=== PATIENT | female | born 1950 | race Caucasian/White ===

== ENCOUNTER 2018-08-02 05:26 | Emergency (ER) | payer MEDICARE ==
[~2018-08-02] VITALS: Ht 160 cm; Wt 110.5 kg
[~2018-08-02 05:26] MED LIST: APIX5TAB3 PO; DILT180C95 PO; METF-950 PO
[2018-08-02] MEDS ORDERED: diltiazem CD 180mg cap (once-daily) PO ONE (06:30)
[2018-08-02] MEDS ORDERED: diltiazem CD 180mg cap (once-daily) PO SCH (06:30)
[2018-08-02 06:36] VITALS: BP 100/51
== END 2018-08-02 06:47 | disposition home or self-care (01) ==
LOC: ER 05:30
DX: I48.0 Paroxysmal atrial fibrillation (principal); E78.00 Pure hypercholesterolemia, unspecified; I10 Essential (primary) hypertension; E11.9 Type 2 diabetes mellitus without complications; Z90.49 Acquired absence of other specified parts of digestive tract; Z88.5 Allergy status to narcotic agent; Z79.899 Other long term (current) drug therapy
CPT/HCPCS: 71046; 82948; 93005; 99283; 99284

== ENCOUNTER 2022-05-01 11:06 | Day surgery (SDC) | payer OTHER ==
[2022-04-25 10:45] LABS: HEMOGLOBIN 7.8 g/dl (12.0-16.0); MEAN CORPUSCULAR VOLUME 67.7 FL (78-98)
[2022-04-25 10:47] LABS: BASOPHILS # (AUTO) 0.1 X10'3 (0-0.2); BASOPHILS % (AUTO) 1.3 % (0-1); EOSINOPHILS # (AUTO) 0.2 X10'3 (0-0.9); EOSINOPHILS % (AUTO) 2.8 % (0-6); HEMATOCRIT 26.1 % (35.0-45.0); LYMPHOCYTES # (AUTO) 1.5 X10'3 (1.1-4.8); LYMPHOCYTES % (AUTO) 20.1 % (21-51); MEAN CORPUSCULAR HEMOGLOBIN 20.1 PG (27.0-31.0); MEAN CORPUSCULAR HGB CONC 29.8 g/dL (33.0-36.5); MEAN PLATELET VOLUME 8.7 FL (7.4-10.4); MONOCYTES # (AUTO) 0.7 X10'3 (0-0.9); MONOCYTES % (AUTO) 8.8 % (2-12); PLATELET COUNT 288 X10'3 (140-440); RED BLOOD COUNT 3.86 X10'6 (4.20-5.60); WHITE BLOOD COUNT 7.4 X10'3 (4.5-11.0)
[2022-04-25 10:49] LABS: APTT 25 SECONDS (22-32)
[2022-04-25 10:51] LABS: ALBUMIN 3.6 G/DL (3.4-5.0); BLOOD UREA NITROGEN 10 MG/DL (7-18); BUN/CREATININE RATIO 22.7 (6.6-38.0); CALCIUM 9.1 MG/DL (8.5-10.1); CREATININE 0.44 MG/DL (0.40-0.90); GLUCOSE 173 MG/DL (70-104); TOTAL CARBON DIOXIDE 26.9 MMOL/L (24-32); eGFR > 90 ML/MIN
[2022-04-25 11:05] LABS: ANION GAP 9 (8-16); CHLORIDE 103 MMOL/L (99-107); SODIUM 139 MMOL/L (135-145)
[2022-04-25 11:36] LABS: MICROCYTOSIS 2+; PLATELET ESTIMATE NORMAL
[2022-04-25 11:37] LABS: ANISOCYTOSIS 1+; ELLIPTOCYTES 1+; HYPOCHROMASIA 2+; POLYCHROMASIA FEW
[2022-04-25 11:38] LABS: BURR CELLS FEW; SCHISTOCYTES FEW
[2022-05-01] VITALS (12 sets, daily range): BP systolic 108–155; BP diastolic 46–94
[~2022-05-01] VITALS: Ht 160 cm; Wt 102.6 kg
[~2022-05-01 11:06] MED LIST changes: +DILT-36 PO; -DILT180C95 PO; +METF-1203 PO; -METF-950 PO
[2022-05-01] MEDS ORDERED: MIDAZolam 1mg/ml 10ml vial IV ONE (11:30)
[2022-05-01] MEDS ORDERED: normal saline 1000ml 1,000 ML IV SCH (11:30)
[2022-05-01] MEDS ORDERED: fentaNYL/PF 50MCG/1 ML 2ML syringe IV ONE (11:30)
[2022-05-01] MEDS ORDERED: METF-438 PO (12:01)
[2022-05-01] MEDS ORDERED: SOTA80TA73 PO (12:01)
[2022-05-01] MEDS ORDERED: DILT180C87 PO (12:01)
[2022-05-01] MEDS ORDERED: LOSA100T57 PO (12:01)
[2022-05-01] MEDS ORDERED: DULA1.5P SQ (12:01)
[2022-05-01] MEDS ORDERED: LEVO150T8 PO (12:01)
[2022-05-01] MEDS ORDERED: ATOR20TA66 PO (12:01)
[2022-05-01] MEDS ORDERED: POTA-82 PO (12:01)
[2022-05-01] MEDS ORDERED: APIX5TAB3 PO (12:06)
[2022-05-01] MEDS ORDERED: FERR325T28 PO (12:06)
[2022-05-01] MEDS ORDERED: ATOR20TA PO (12:06)
== END 2022-05-01 14:15 | disposition home or self-care (01) ==
LOC: SSTAY O 11:06
PROVIDERS: ATTEND Internal Medicine Interventional Cardiology
DX: I48.0 Paroxysmal atrial fibrillation (principal); E11.9 Type 2 diabetes mellitus without complications; I11.0 Hypertensive heart disease with heart failure; I50.31 Acute diastolic (congestive) heart failure; I08.1 Rheumatic disorders of both mitral and tricuspid valves; E03.9 Hypothyroidism, unspecified; E66.9 Obesity, unspecified; Z68.41 Body mass index [BMI] 40.0-44.9, adult; Z79.899 Other long term (current) drug therapy; Z79.84 Long term (current) use of oral hypoglycemic drugs; Z88.2 Allergy status to sulfonamides; Z91.012 Allergy to eggs
CPT/HCPCS: 36415; 80048; 82948; 85025; 85610; 85730; 92960; 93005; J2250; J3010; J7030; 85008; A4620

== ENCOUNTER 2022-08-17 07:47 | Inpatient (IN) | payer MEDICARE, OTHER ==
[2022-08-17] VITALS (10 sets, daily range): BP systolic 128–160; BP diastolic 66–84
[~2022-08-17] VITALS: Ht 160 cm; Wt 103.7 kg
[~2022-08-17 07:47] MED LIST changes: +ATOR20TA PO; +ATOR20TA66 PO; -DILT-36 PO; +DILT180C76 PO; +DULA1.5P SQ; +FERR325T28 PO; +LEVO150T8 PO; +LOSA100T58 PO; -METF-1203 PO; +METF-438 PO; +POTA-366 PO; +SOTA80TA73 PO
[2022-08-17 08:26] LABS: BASOPHILS # (AUTO) 0.1 X10'3 (0-0.2); EOSINOPHILS % (AUTO) 0.5 % (0-6); LYMPHOCYTES % (AUTO) 12.4 % (21-51); MEAN CORPUSCULAR HEMOGLOBIN 16.9 PG (27.0-31.0); MEAN CORPUSCULAR HGB CONC 27.5 g/dL (33.0-36.5); MEAN CORPUSCULAR VOLUME 61.3 FL (78-98); MEAN PLATELET VOLUME 8.4 FL (7.4-10.4); MONOCYTES # (AUTO) 0.7 X10'3 (0-0.9); MONOCYTES % (AUTO) 7.8 % (2-12); NEUTROPHILS # (AUTO) 6.6 X10'3 (1.8-7.7); NEUTROPHILS % (AUTO) 78.3 % (42-75); PLATELET COUNT 250 X10'3 (140-440); RED BLOOD COUNT 3.56 X10'6 (4.20-5.60); RED CELL DISTRIBUTION WIDTH 21.8 % (11.5-14.5); WHITE BLOOD COUNT 8.5 X10'3 (4.5-11.0)
[2022-08-17] MEDS ORDERED: magnesium 4gm in 100ml NS 100 ML IV ONE (08:30)
[2022-08-17] MEDS ORDERED: digoxin 250mcg/ml 2ml ampule IV ONE (08:30)
[2022-08-17 08:42] LABS: ALANINE AMINOTRANSFERASE 16 U/L (12-78); ALBUMIN 3.5 G/DL (3.4-5.0); ALBUMIN/GLOBULIN RATIO 1.1 (1.1-1.5); ALKALINE PHOSPHATASE 94 IU/L (46-116); ANION GAP 12 (8-16); ASPARTATE AMINO TRANSFERASE 13 U/L (10-37); BILIRUBIN,TOTAL 0.4 MG/DL (0.1-1.0); BLOOD UREA NITROGEN 12 MG/DL (7-18); BUN/CREATININE RATIO 22.6 (10.0-20.0); CALCIUM 8.9 MG/DL (8.5-10.1); CHLORIDE 100 MMOL/L (99-107); CREATININE 0.53 MG/DL (0.40-0.90); GLUCOSE 186 MG/DL (70-104); HEMATOCRIT 21.8 % (35.0-45.0); POTASSIUM 4.1 MMOL/L (3.5-5.1); SODIUM 137 MMOL/L (135-145); TOTAL CARBON DIOXIDE 24.8 MMOL/L (24-32); TOTAL PROTEIN 6.6 G/DL (6.4-8.2); eGFR > 90 ML/MIN
--- NOTE | 2022-08-17 08:50 | NUR ---
RN ATTEMPTING TO GET 2ND IV AT THIS TIME D/T PT WILL NEED AMIODARONE AND BLOOD.
[2022-08-17 09:03] LABS: ANISOCYTOSIS 3+; ELLIPTOCYTES 1+; HYPOCHROMASIA 2+; MICROCYTOSIS 2+; PLATELET ESTIMATE NORMAL; POLYCHROMASIA FEW; TEAR DROP CELLS 2+
[2022-08-17] MEDS ORDERED: diltiazem 5mg/ml 5ml inj. IV ONE (09:05)
--- NOTE | 2022-08-17 09:09 | NUR ---
pt hgb 6.0/hct 21.8. rn notified DR INTERIANO.
--- NOTE | 2022-08-17 09:15 | NUR ---
RN UNABLE TO OBTAIN IV AFTER 2 STICKS. 2ND RN ATTEMPTING 2ND IV AT THIS TIME.
[2022-08-17] MEDS ORDERED: pantoprazole 40mg IV 80 MG in normal saline 100ml IV soln 100 ML IV ONE (09:30)
[2022-08-17 09:52] LABS: OCCULT BLOOD STOOL POSITIVE (Neg)
[2022-08-17] MEDS ORDERED: pantoprazole 40MG/NS 100ML BAG 100 ML IV ONE (10:00)
[2022-08-17] MEDS ORDERED: ondansetron/PF 4mg/2ml inj IV ONE (10:40)
[2022-08-17] MEDS ORDERED: propofol 1000mg/100ml bottle 100 ML IV SCH (10:40)
[2022-08-17] MEDS ORDERED: glucagon, human recombinant 1mg kit SUBCUT PRN (15:10)
[2022-08-17] MEDS ORDERED: magnesium hydroxide 30ml (MOM) UD suspension PO PRN (15:10)
[2022-08-17] MEDS ORDERED: morphine 2 MG/ML inj. syringe IV PRN ×2 (15:10)
[2022-08-17] MEDS ORDERED: dextrose 50%-water 50ml dispensing syringe IV PRN ×2 (15:10)
[2022-08-17] MEDS ORDERED: acetaminophen 325mg tablet PO PRN ×2 (15:10)
[2022-08-17] MEDS ORDERED: MESSAGE TO PHARMACY PO ONE (15:10)
[2022-08-17] MEDS ORDERED: ondansetron/PF 4mg/2ml inj IV PRN (15:10)
[2022-08-17] MEDS ORDERED: mag hydrox/Alum hydrox/simeth 30ml oral suspension PO PRN (15:10)
[2022-08-17] MEDS ORDERED: DEXTROSE 15 GM of carb/4 tabs (each vial/BOTTLE has 4 tablets) PO PRN ×2 (15:10)
[2022-08-17] MEDS ORDERED: insulin Lispro (HumaLOG) vial - multi-dose SQ SCH (15:10)
[2022-08-17 15:55] LABS: HEMOGLOBIN A1C 6.4 % (4.5-6.2)
[2022-08-17] MEDS ORDERED: DILT240C88 PO (17:10)
--- NOTE | 2022-08-17 17:31 | NUR ---
CORRECTION MAD TO TRANSFUSION SPREADSHEET - UNABLE TO UNDO 1645 VITALS DURING SECOND UNIT, MISTYPE IN RR.
--- NOTE | 2022-08-17 17:48 | NUR ---
Sent to Dr Alegre - [id number] Tara Garcia Currently NPO. Due to procedure delayed until tomorrow can we give her dinner and restart NPO at 0000? Khadijah ZIEGLER [phone]
--- NOTE | 2022-08-17 17:48 | NUR ---
Patient admitted to PCU.
--- NOTE | 2022-08-17 18:20 | NUR ---
MD gave verbal order to advance diet from NPO to full liquid until midnight. Orders updated and pt tolerated full liquid diet for dinner well.
[2022-08-17 19:23] LABS: HEMATOCRIT 27.2 % (35.0-45.0); HEMOGLOBIN 8.3 g/dl (12.0-16.0); MEAN CORPUSCULAR HEMOGLOBIN 20.6 PG (27.0-31.0); MEAN CORPUSCULAR HGB CONC 30.5 g/dL (33.0-36.5); MEAN CORPUSCULAR VOLUME 67.4 FL (78-98); MEAN PLATELET VOLUME 8.5 FL (7.4-10.4); PLATELET COUNT 189 X10'3 (140-440); RED BLOOD COUNT 4.04 X10'6 (4.20-5.60); WHITE BLOOD COUNT 7.5 X10'3 (4.5-11.0)
[2022-08-17] MEDS: docusate sod 100mg capsule PO SCH (19:31)
--- NOTE | 2022-08-17 20:30 | NUR ---
PET COUNSELOR documentation: I have reviewed and agree with all interventions, assessments performed and documented byBeckie Blankenship LVN.
[2022-08-17] MEDS: pantoprazole 40MG/NS 100ML BAG 100 ML IV SCH (20:31)
[2022-08-17] MEDS: insulin glargine (Lantus) pen - multi-dose SQ SCH (20:34)
[2022-08-18] VITALS (11 sets, daily range): BP systolic 109–158; BP diastolic 58–94
[2022-08-18] MEDS: docusate sod 100mg capsule PO SCH ×2 (06:14→20:06)
[2022-08-18 06:39] LABS: BASOPHILS # (AUTO) 0.1 X10'3 (0-0.2); BASOPHILS % (AUTO) 1.2 % (0-1); EOSINOPHILS # (AUTO) 0.2 X10'3 (0-0.9); EOSINOPHILS % (AUTO) 2.7 % (0-6); HEMATOCRIT 27.7 % (35.0-45.0); HEMOGLOBIN 8.3 g/dl (12.0-16.0); LYMPHOCYTES # (AUTO) 1.6 X10'3 (1.1-4.8); LYMPHOCYTES % (AUTO) 22.3 % (21-51); MEAN CORPUSCULAR HEMOGLOBIN 20.6 PG (27.0-31.0); MEAN CORPUSCULAR VOLUME 68.7 FL (78-98); MEAN PLATELET VOLUME 8.4 FL (7.4-10.4); MONOCYTES # (AUTO) 0.6 X10'3 (0-0.9); MONOCYTES % (AUTO) 8.8 % (2-12); NEUTROPHILS # (AUTO) 4.5 X10'3 (1.8-7.7); PLATELET COUNT 206 X10'3 (140-440); RED BLOOD COUNT 4.03 X10'6 (4.20-5.60); RED CELL DISTRIBUTION WIDTH 28.3 % (11.5-14.5)
[2022-08-18 07:01] LABS: ALBUMIN 3.2 G/DL (3.4-5.0); ANION GAP 9 (8-16); BLOOD UREA NITROGEN 8 MG/DL (7-18); BUN/CREATININE RATIO 15.1 (10.0-20.0); CALCIUM 8.6 MG/DL (8.5-10.1); CHLORIDE 104 MMOL/L (99-107); CREATININE 0.53 MG/DL (0.40-0.90); GLUCOSE 125 MG/DL (70-104); POTASSIUM 3.8 MMOL/L (3.5-5.1); SODIUM 139 MMOL/L (135-145); TOTAL CARBON DIOXIDE 26.2 MMOL/L (24-32); eGFR > 90 ML/MIN
[2022-08-18] MEDS: pantoprazole 40MG/NS 100ML BAG 100 ML IV SCH ×2 (08:29→20:47)
--- NOTE | 2022-08-18 08:44 | NUR ---
DM consult: Per EMR pt with T2DM, well controlled with A1c 6.4%. DM education not warranted at this time. Will continue to follow. Addendum: 08/18/22 at [address] Amended: Links added.
[2022-08-18] MEDS ORDERED: LIDOcaine Viscous 15ml cup ONE (11:19)
[2022-08-18] MEDS ORDERED: fentaNYL/PF 50MCG/1 ML 2ML syringe ONE (11:19)
[2022-08-18] MEDS ORDERED: MIDAZolam 1 MG/ML 5ML VIAL ONE (11:19)
[2022-08-18] MEDS ORDERED: PEG 3350/Na sulf,bicarb,Cl/KCl oral sol 4 liter bottle PO ONE (16:05)
[2022-08-18] MEDS: insulin glargine (Lantus) pen - multi-dose SQ SCH (20:32)
[2022-08-18] MEDS ORDERED: atorvastatin 20mg tablet PO SCH (21:00)
[2022-08-18] MEDS ORDERED: losartan 50mg tablet PO SCH (21:00)
[2022-08-19] VITALS (13 sets, daily range): BP systolic 102–140; BP diastolic 48–72
--- NOTE | 2022-08-19 03:47 | NUR ---
SOLAR SYSTEMS DESIGNER documentation: I have reviewed and agree with assessment performed and documented by BETI Dowd
[2022-08-19 06:14] LABS: ANION GAP 11 (8-16); BASOPHILS # (AUTO) 0.1 X10'3 (0-0.2); BASOPHILS % (AUTO) 1.1 % (0-1); BLOOD UREA NITROGEN 5 MG/DL (7-18); BUN/CREATININE RATIO 11.4 (10.0-20.0); CALCIUM 8.6 MG/DL (8.5-10.1); CHLORIDE 105 MMOL/L (99-107); CREATININE 0.44 MG/DL (0.40-0.90); EOSINOPHILS # (AUTO) 0.1 X10'3 (0-0.9); EOSINOPHILS % (AUTO) 2.5 % (0-6); GLUCOSE 129 MG/DL (70-104); HEMATOCRIT 26.2 % (35.0-45.0); HEMOGLOBIN 7.8 g/dl (12.0-16.0); LYMPHOCYTES # (AUTO) 0.8 X10'3 (1.1-4.8); LYMPHOCYTES % (AUTO) 15.7 % (21-51); MEAN CORPUSCULAR HEMOGLOBIN 20.3 PG (27.0-31.0); MEAN CORPUSCULAR HGB CONC 29.7 g/dL (33.0-36.5); MEAN CORPUSCULAR VOLUME 68.3 FL (78-98); MEAN PLATELET VOLUME 8.6 FL (7.4-10.4); MONOCYTES # (AUTO) 0.6 X10'3 (0-0.9); NEUTROPHILS # (AUTO) 3.8 X10'3 (1.8-7.7); NEUTROPHILS % (AUTO) 69.7 % (42-75); PLATELET COUNT 177 X10'3 (140-440); POTASSIUM 3.5 MMOL/L (3.5-5.1); RED BLOOD COUNT 3.83 X10'6 (4.20-5.60); RED CELL DISTRIBUTION WIDTH 29.2 % (11.5-14.5); SODIUM 143 MMOL/L (135-145); WHITE BLOOD COUNT 5.4 X10'3 (4.5-11.0); eGFR > 90 ML/MIN
--- NOTE | 2022-08-19 06:30 | NUR ---
Patient in room U 3023. I have received report from Beckie GHOSH and had the opportunity to ask questions and assume patient care. Addendum: 08/19/22 at 0633 by Chadd Castro RN Beckie brenner RN
--- NOTE | 2022-08-19 06:31 | NUR ---
Patient in room PCU 3023. I have received report from Beckie ZIEGLER and had the opportunity to ask questions and assume patient care.
[2022-08-19] MEDS ORDERED: levoTHYROXINE 75mcg tablet PO SCH (08:00)
[2022-08-19] MEDS ORDERED: diltiazem CD 120mg capsule (once-daily) PO SCH (08:00)
[2022-08-19] MEDS ORDERED: ferrous sulfate 325mg tablet PO SCH (08:00)
[2022-08-19] MEDS ORDERED: fentaNYL/PF 50MCG/1 ML 2ML syringe ONE (09:08)
[2022-08-19] MEDS ORDERED: MIDAZolam 1 MG/ML 5ML VIAL ONE (09:08)
--- NOTE | 2022-08-19 09:39 | NUR ---
PAGER ID: [phone] MESSAGE: LOREN GHOSH TELE [phone], FERMIN Chilel [phone]. PT. RETURNED TO FLOOR AFTER COLONOSCOPY. RESULTS ARE IN CHART. PT. CURRENTLY ON POST OPS. THANKS
[2022-08-19] MEDS: pantoprazole 40MG/NS 100ML BAG 100 ML IV SCH (09:52)
[2022-08-19] MEDS: docusate sod 100mg capsule PO SCH (09:53)
--- NOTE | 2022-08-19 13:44 | NUR ---
PAGER ID: [phone] MESSAGE: Alek Parnell re: [phone] Yas Garcia type and screen developed a new antibody that they have not isolated yet, new since the . Do you still want to transfuse the unit once they complete the screening. Thanks
--- NOTE | 2022-08-19 15:59 | NUR ---
pt. IV cannula whole and intact upon removal, pt. left with all belongings 2 purses and 1 plastic bag, accompanied by daughter in law in private vehicle, pt safely transferred into vehicle. education provided to pt. upon discharge. Addendum: 08/19/22 at 1620 by Chadd Castro RN education provided on follow up with wellness nurse and primary care provider, s/s of bleeding, type 2 diabetes management, and pt. declined to stay for blood transfusion, okayed by
[2022-08-19] MEDS ORDERED: pantoprazole 40mg Tablet.DR PO SCH (20:00)
== END 2022-08-19 15:35 | disposition home or self-care (01) | DRG 378 ==
LOC: ER 07:48 → ED HOLD 15:11 → PCU 3S 17:30
PROVIDERS: ADMIT Internal Medicine; ATTEND Internal Medicine
PROC: 30233N1 Transfusion of Nonautologous Red Blood Cells into Peripheral Vein, Percutaneous Approach (ICD-10-PCS; principal; 2022-08-17)
PROC: 0DB98ZX Excision of Duodenum, Via Natural or Artificial Opening Endoscopic, Diagnostic (ICD-10-PCS; 2022-08-17)
PROC: 0DB68ZX Excision of Stomach, Via Natural or Artificial Opening Endoscopic, Diagnostic (ICD-10-PCS; 2022-08-17)
PROC: 0DJD8ZZ Inspection of Lower Intestinal Tract, Via Natural or Artificial Opening Endoscopic (ICD-10-PCS; 2022-08-17)
DX: K92.2 Gastrointestinal hemorrhage, unspecified (principal); Z68.41 Body mass index [BMI] 40.0-44.9, adult; D64.9 Anemia, unspecified; K29.71 Gastritis, unspecified, with bleeding; E03.9 Hypothyroidism, unspecified; E11.9 Type 2 diabetes mellitus without complications; E78.00 Pure hypercholesterolemia, unspecified; E66.01 Morbid (severe) obesity due to excess calories; I10 Essential (primary) hypertension; I48.0 Paroxysmal atrial fibrillation; K21.9 Gastro-esophageal reflux disease without esophagitis; Z79.01 Long term (current) use of anticoagulants; Z79.84 Long term (current) use of oral hypoglycemic drugs; Z79.85 Long-term (current) use of injectable non-insulin antidiabetic drugs; Z79.899 Other long term (current) drug therapy; Z90.49 Acquired absence of other specified parts of digestive tract; Z82.49 Family history of ischemic heart disease and other diseases of the circulatory system; Z88.5 Allergy status to narcotic agent
CPT/HCPCS: 36415; 36430; 43239; 45378; 71045; 80048; 80053; 82272; 82948; 83036; 83880; 84484; 85008; 85025; 85027; 86870; 86885; 86900; 86901; 86902; 86905; 86920; 87081; 93005; 99152; 99285; A4620; C9113; G0378; J1160; J1815; J2250; J2405; J3010; J3475; J3490; J7030; J7040; P9016

== ENCOUNTER 2022-10-24 11:34 | Inpatient (IN) | payer MEDICARE ==
[~2022-10-24] VITALS: Ht 160 cm; Wt 104.5 kg
[2022-10-24] VITALS (10 sets, daily range): BP systolic 103–167; BP diastolic 70–87; PULSE 95–137; RESP 12–19; TEMP 98–98.9; O2SAT 96
[~2022-10-24 11:34] MED LIST changes: -ATOR20TA66 PO; -DILT180C76 PO; +DILT240C88 PO; -SOTA80TA73 PO
[2022-10-24 13:25] LABS: BASOPHILS # (AUTO) 0.1 X10'3 (0-0.2); EOSINOPHILS % (AUTO) 0.5 % (0-6); HEMATOCRIT 25.3 % (35.0-45.0); MONOCYTES # (AUTO) 0.5 X10'3 (0-0.9); NEUTROPHILS # (AUTO) 7.1 X10'3 (1.8-7.7)
[2022-10-24 13:29] LABS: BASOPHILS % (AUTO) 1.5 % (0-1); HEMOGLOBIN 7.2 g/dl (12.0-16.0); LYMPHOCYTES # (AUTO) 0.8 X10'3 (1.1-4.8); MEAN CORPUSCULAR HGB CONC 28.3 g/dL (33.0-36.5); MEAN CORPUSCULAR VOLUME 63.4 FL (78-98); MEAN PLATELET VOLUME 8.8 FL (7.4-10.4); MONOCYTES % (AUTO) 6.4 % (2-12); NEUTROPHILS % (AUTO) 82.6 % (42-75); PLATELET COUNT 205 X10'3 (140-440); RED CELL DISTRIBUTION WIDTH 21.6 % (11.5-14.5); WHITE BLOOD COUNT 8.6 X10'3 (4.5-11.0)
[2022-10-24 13:31] LABS: APTT 23 SECONDS (22-32); INR 1.1 INR; PROTHROMBIN TIME 11.5 SECONDS (9.0-12.0)
[2022-10-24 13:41] LABS: ALANINE AMINOTRANSFERASE 9 U/L (12-78); ALBUMIN 3.5 G/DL (3.4-5.0); ALBUMIN/GLOBULIN RATIO 1.1 (1.1-1.5); ALKALINE PHOSPHATASE 96 IU/L (46-116); ANION GAP 10 (8-16); ASPARTATE AMINO TRANSFERASE 16 U/L (10-37); BILIRUBIN,TOTAL 0.4 MG/DL (0.1-1.0); BLOOD UREA NITROGEN 12 MG/DL (7-18); CALCIUM 9.3 MG/DL (8.5-10.1); CHLORIDE 100 MMOL/L (99-107); CREATININE 0.48 MG/DL (0.40-0.90); GLUCOSE 210 MG/DL (70-104); POTASSIUM 4.5 MMOL/L (3.5-5.1); SODIUM 135 MMOL/L (135-145); TOTAL CARBON DIOXIDE 24.9 MMOL/L (24-32); TOTAL PROTEIN 6.6 G/DL (6.4-8.2); eCRCL 89 ML/MIN; eGFR > 90 ML/MIN
[2022-10-24] MEDS ORDERED: pantoprazole 40 MG vial IV ONE (14:35)
[2022-10-24 14:37] LABS: LARGE PLATELETS FEW; PLATELET ESTIMATE NORMAL
[2022-10-24 14:38] LABS: ANISOCYTOSIS 3+; MICROCYTOSIS 2+
[2022-10-24 14:39] LABS: ELLIPTOCYTES 1+
[2022-10-24 14:41] LABS: HYPOCHROMASIA 3+; POLYCHROMASIA FEW; TEAR DROP CELLS FEW
[2022-10-24] MEDS ORDERED: pantoprazole 40MG/NS 100ML BAG 100 ML IV ONE (14:45)
[2022-10-24 15:04] LABS: RED BLOOD COUNT 4.04 X10'6 (4.20-5.60); RETICULOCYTE % (AUTO) 5.3 % (0.5-1.5)
[2022-10-24 15:50] LABS: OCCULT BLOOD STOOL POSITIVE (Neg)
[2022-10-24] MEDS ORDERED: HYDROcodone/acetaminophen 5mg/325mg tablet PO PRN (17:40)
[2022-10-24] MEDS ORDERED: mag hydrox/Alum hydrox/simeth 30ml oral suspension PO PRN (17:40)
[2022-10-24] MEDS ORDERED: acetaminophen 325mg tablet PO PRN ×2 (17:40)
[2022-10-24] MEDS ORDERED: bisacodyl 10mg suppository rectal RC PRN (17:40)
[2022-10-24] MEDS ORDERED: HYDROcodone/acetaminophen 10/325mg tab PO PRN (17:40)
[2022-10-24] MEDS ORDERED: magnesium Cl slow-release 64mg tablet PO PRN (17:40)
[2022-10-24] MEDS ORDERED: HYDROmorphone/PF 0.2 MG/ML SYRINGE IV PRN (17:40)
[2022-10-24] MEDS ORDERED: magnesium 4gm in 100ml NS 100 ML IV PRN (17:40)
[2022-10-24] MEDS ORDERED: PEG 3350/Na sulf,bicarb,Cl/KCl oral sol 4 liter bottle PO ONE (17:40)
[2022-10-24] MEDS ORDERED: potassium Cl 20 mEq SR tablet PO PRN ×2 (17:40)
[2022-10-24] MEDS ORDERED: potassium Cl 40MEQ/1/2NS 520ml 520 ML IV PRN (17:40)
[2022-10-24] MEDS ORDERED: magnesium hydroxide 30ml (MOM) UD suspension PO PRN (17:40)
[2022-10-24] MEDS ORDERED: magnesium 2GM in 50ml NS 50 ML IV PRN (17:40)
[2022-10-24] MEDS ORDERED: ondansetron 4mg rapidly disintigrating tab PO PRN (17:40)
[2022-10-24] MEDS ORDERED: ondansetron/PF 4mg/2ml inj IV PRN (17:40)
[2022-10-24] MEDS ORDERED: HYDROmorphone inj. 0.5 MG/0.5 ML DISP.SYRIN IV PRN (17:40)
[2022-10-24] MEDS: K and/or MAG REPLACEMENT MC SCH (20:00)
[2022-10-24] MEDS: docusate sod 100mg capsule PO SCH (20:00)
[2022-10-24] MEDS ORDERED: temazepam 15mg capsule PO PRN (21:00)
[2022-10-24] MEDS ORDERED: losartan 50mg tablet PO SCH (21:00)
--- NOTE | 2022-10-24 21:00 | NUR ---
BLOOD STARTED VERIFIED WITH RN
[2022-10-24] MEDS: normal saline 1000ml 1,000 ML IV SCH (22:45)
--- NOTE | 2022-10-24 23:25 | NUR ---
PATIENT ADMITTED TO ROOM 3028B FROM ER FOR GI BLEED. PLACED COMFORTABLE IN BED. VITAL SIGNS TAKEN AND RECORDED.
[2022-10-25 02:00] VITALS: BP 156/82; PULSE 122; RESP 18; TEMP 98; O2SAT 98
[2022-10-25] MEDS: normal saline 1000ml 1,000 ML IV SCH ×2 (04:33→13:40)
[2022-10-25 06:00] VITALS: BP 140/68; PULSE 127; RESP 16; TEMP 97.9; O2SAT 100
--- NOTE | 2022-10-25 06:18 | NUR ---
Problems reprioritized. Patient report given, questions answered & plan of care reviewed with JUNG GHOSH.
[2022-10-25] MEDS ORDERED: levoTHYROXINE 75mcg tablet PO SCH (07:00)
[2022-10-25] MEDS: docusate sod 100mg capsule PO SCH (07:18)
[2022-10-25] MEDS ORDERED: pantoprazole 40mg Tablet.DR PO SCH (07:30)
[2022-10-25 07:32] LABS: BASOPHILS # (AUTO) 0.1 X10'3 (0-0.2); BASOPHILS % (AUTO) 1.1 % (0-1); EOSINOPHILS # (AUTO) 0.1 X10'3 (0-0.9); EOSINOPHILS % (AUTO) 1.8 % (0-6); HEMATOCRIT 31.1 % (35.0-45.0); HEMOGLOBIN 9.5 g/dl (12.0-16.0); LYMPHOCYTES # (AUTO) 1.2 X10'3 (1.1-4.8); LYMPHOCYTES % (AUTO) 16.8 % (21-51); MEAN CORPUSCULAR HEMOGLOBIN 20.9 PG (27.0-31.0); MEAN CORPUSCULAR HGB CONC 30.7 g/dL (33.0-36.5); MEAN PLATELET VOLUME 8.4 FL (7.4-10.4); MONOCYTES # (AUTO) 0.6 X10'3 (0-0.9); MONOCYTES % (AUTO) 8.4 % (2-12); NEUTROPHILS # (AUTO) 5.3 X10'3 (1.8-7.7); NEUTROPHILS % (AUTO) 71.9 % (42-75); PLATELET COUNT 210 X10'3 (140-440); RED BLOOD COUNT 4.57 X10'6 (4.20-5.60); RED CELL DISTRIBUTION WIDTH 26.3 % (11.5-14.5); WHITE BLOOD COUNT 7.4 X10'3 (4.5-11.0)
[2022-10-25 07:35] LABS: HEMOGLOBIN A1C 6.7 % (4.5-6.2)
[2022-10-25 07:53] LABS: ALANINE AMINOTRANSFERASE 20 U/L (12-78); ALBUMIN 3.6 G/DL (3.4-5.0); ALBUMIN/GLOBULIN RATIO 1.1 (1.1-1.5); ALKALINE PHOSPHATASE 94 IU/L (46-116); ANION GAP 7 (8-16); ASPARTATE AMINO TRANSFERASE 15 U/L (10-37); BILIRUBIN,TOTAL 1.1 MG/DL (0.1-1.0); BLOOD UREA NITROGEN 8 MG/DL (7-18); BUN/CREATININE RATIO 16.3 (10.0-20.0); CALCIUM 9.6 MG/DL (8.5-10.1); CHLORIDE 102 MMOL/L (99-107); CREATININE 0.49 MG/DL (0.40-0.90); GLUCOSE 217 MG/DL (70-104); MAGNESIUM 1.5 MG/DL (1.5-2.4); POTASSIUM 4.1 MMOL/L (3.5-5.1); SODIUM 137 MMOL/L (135-145); TOTAL CARBON DIOXIDE 28.1 MMOL/L (24-32); TOTAL PROTEIN 6.9 G/DL (6.4-8.2); eCRCL 87 ML/MIN; eGFR > 90 ML/MIN
[2022-10-25] MEDS ORDERED: diltiazem CD 120mg capsule (once-daily) PO SCH (08:00)
[2022-10-25] MEDS ORDERED: potassium Cl 20 mEq SR tablet PO SCH (08:00)
[2022-10-25] MEDS: K and/or MAG REPLACEMENT MC SCH (08:00)
[2022-10-25] MEDS ORDERED: MIDAZolam 1 MG/ML 5ML VIAL ONE (11:21)
[2022-10-25] MEDS ORDERED: fentaNYL/PF 50MCG/1 ML 2ML syringe ONE (11:21)
[2022-10-25] MEDS ORDERED: LIDOcaine Viscous 15ml cup ONE (11:26)
[2022-10-25 11:54] VITALS: BP 102/61; PULSE 103; RESP 14; O2SAT 100
[2022-10-25 12:52] VITALS: BP 132/62; PULSE 104; RESP 19
--- NOTE | 2022-10-25 14:36 | NUR ---
Nutrition consult re: "Diabetic" Pt presents with an A1c of 6.7% this admit per EMR. Diabetes nutrition education not warranted given advanced age and appropriate A1c. Will continue to monitor and make recommendations as appropriate. Addendum: 10/25/22 at [address] Amended: Links added.
[2022-10-25] MEDS ORDERED: PANT40TA54 PO (15:02)
--- NOTE | 2022-10-25 15:15 | NUR ---
Discharge instructions discussed with pt. all questions answered. Talked about new medication. pt states she understands all instructions. Family coming to pick pt up. Pt will leave unit via wheelchair to private car.
== END 2022-10-25 15:47 | disposition home or self-care (01) | DRG 379 ==
LOC: ER 11:34 → ED HOLD 17:40 → PCU 3S 23:23
PROVIDERS: ADMIT Family Medicine; ATTEND Family Medicine
PROC: 30233N1 Transfusion of Nonautologous Red Blood Cells into Peripheral Vein, Percutaneous Approach (ICD-10-PCS; principal; 2022-10-24)
PROC: 0DJ08ZZ Inspection of Upper Intestinal Tract, Via Natural or Artificial Opening Endoscopic (ICD-10-PCS; 2022-10-25)
DX: K92.2 Gastrointestinal hemorrhage, unspecified (principal); D50.0 Iron deficiency anemia secondary to blood loss (chronic); E03.9 Hypothyroidism, unspecified; E11.9 Type 2 diabetes mellitus without complications; E78.00 Pure hypercholesterolemia, unspecified; I10 Essential (primary) hypertension; I48.0 Paroxysmal atrial fibrillation; R19.5 Other fecal abnormalities; Z79.01 Long term (current) use of anticoagulants; Z79.84 Long term (current) use of oral hypoglycemic drugs
CPT/HCPCS: 36415; 36430; 43239; 80053; 82272; 83036; 83735; 85008; 85025; 85045; 85610; 85730; 86870; 86885; 86900; 86901; 86902; 86922; 87081; 88305; 99152; 99291; C9113; G0378; J2250; J3010; J7030; P9016

== ENCOUNTER 2024-08-19 02:57 | Inpatient (IN) | payer MEDICARE, MEDICAID ==
[~2024-08-19] VITALS: Ht 160 cm; Wt 111.4 kg
[~2024-08-19 02:57] MED LIST changes: -DULA1.5P SQ; +PANT40TA54 PO
[2024-08-19 03:26] LABS: BASOPHILS % (AUTO) 0.5 % (0-1); EOSINOPHILS # (AUTO) 0.1 X10'3 (0-0.9); EOSINOPHILS % (AUTO) 0.8 % (0-6); HEMATOCRIT 42.9 % (35.0-45.0); HEMOGLOBIN 14.5 g/dl (12.0-16.0); MEAN CORPUSCULAR HEMOGLOBIN 30.2 PG (27.0-31.0); MEAN CORPUSCULAR HGB CONC 33.8 g/dL (33.0-36.5); MEAN CORPUSCULAR VOLUME 89.1 FL (78-98); MEAN PLATELET VOLUME 8.7 FL (7.4-10.4); MONOCYTES # (AUTO) 0.7 X10'3 (0-0.9); MONOCYTES % (AUTO) 7.3 % (2-12); NEUTROPHILS # (AUTO) 7.9 X10'3 (1.8-7.7); NEUTROPHILS % (AUTO) 81.4 % (42-75); PLATELET COUNT 231 X10'3 (140-440); RED BLOOD COUNT 4.82 X10'6 (4.20-5.60); RED CELL DISTRIBUTION WIDTH 14.2 % (11.5-14.5); WHITE BLOOD COUNT 9.8 X10'3 (4.5-11.0)
[2024-08-19 03:29] LABS: ALBUMIN 3.8 G/DL (3.4-5.0); ANION GAP 9 (8-16); BLOOD UREA NITROGEN 15 MG/DL (7-18); BUN/CREATININE RATIO 20.5 (10.0-20.0); CALCIUM 9.3 MG/DL (8.5-10.1); CHLORIDE 101 MMOL/L (99-107); CREATININE 0.73 MG/DL (0.40-0.90); GLUCOSE 286 MG/DL (70-104); POTASSIUM 4.3 MMOL/L (3.5-5.1); SODIUM 137 MMOL/L (135-145); TOTAL CARBON DIOXIDE 26.6 MMOL/L (24-32); eCRCL 57 ML/MIN; eGFR 78 ML/MIN
--- NOTE | 2024-08-19 04:07 | RADIOLOGY REPORT ---
CLINICAL INDICATION: HIP PAIN TECHNIQUE: AP views of the pelvis and AP and frogleg lateral views of the right hip were performed. DI HIP UNILATERAL 2 VIEWS Comparison: None FINDINGS/IMPRESSION: 1. Distracted fracture of the right proximal femoral greater trochanter, timing unknown. This fractur e may be acute or chronic. Evaluation of fine detail is severely limited by the patient's large body habitus. 2. No other fractures are identified about the pelvis or left hip. 3. Mild Osteoarthritis of the left hip. 4. The iliac crests are not fully imaged here. 5. Surgical clip in the right mid pelvis.
--- NOTE | 2024-08-19 04:09 | RADIOLOGY REPORT ---
CLINICAL INDICATION: LEG PAIN TECHNIQUE: AP and lateral views of the right lower leg were performed. DI TIB/FIB 2 VWS Comparison: None FINDINGS/IMPRESSION: 1. Possible mildly displaced fracture of the medial malleolus, only seen in the periphery of the AP v iew. Recommend formal radiographs of the right ankle for better characterization. 2. No other evidence of fracture about the right tibia or fibula. 3. [id number] osteoarthritis of the right knee, greatest in the medial compartment. 4. Abundant subcutaneous adipose tissue consistent with obesity.
--- NOTE | 2024-08-19 04:11 | RADIOLOGY REPORT ---
EXAM: DI FOOT, COMPLETE (3VW MIN) HISTORY: FOOT PAIN COMPARISON: None TECHNIQUE: Three views of the left foot were performed. FINDINGS: No acute fracture or dislocation are identified about the left foot. Plantar calcaneal bone spur and Achilles insertion enthesophyte are noted. There is hallux valgus. There is mild osteoarthritis of t he 1st MTP joint and IP joints of the toes. There is more advanced osteoarthritis of the midfoot wit h prominent marginal osteophytes projecting dorsally. IMPRESSION: 1. No acute fracture of the left foot. 2. Nonacute findings as detailed above.
[2024-08-19] MEDS: acetaminophen 325mg tablet PO ONE (04:17)
--- NOTE | 2024-08-19 04:17 | Physician Documentation ---
History of Present Illness ~ Chief Complaint: Mechanical Fall Stated Complaint: FALL Time Seen by MD: 03:55 Primary Medical Doctor: NONE Mode of Arrival: EMS HPI Patient presents to the emergency room for evaluation of right leg pain and unsteady gait. Patient has been feeling weakness in her right leg for some time however she has been packing to move to [place] in his seems to have had worsening of symptoms. Last night patient fell in the shower by her knee giving out. No head strike. She was unable to get up and ended up crawling to the living room calling her son who is able to help her up. She then tried to ambulate to the bathroom with a cane and fell again which prompted her to call EMS and now she is here. She denies head strike although she is on blood thinners. Tetanus within 5 Years?: Yes Medication Reconciliation Allergies: Coded Allergies: codeine (Verified Allergy, Mild, 08/19/24) Scheduled Apixaban (Eliquis), 1 TAB PO Q12H, (Reported) Atorvastatin Calcium* (Lipitor*), 1 TABLET PO HS, (Reported) Diltiazem Hcl (Diltiazem 24HR Er), 1 CAP PO DAILY, (Reported) Ferrous Sulfate* (Ferrous Sulfate*), 1 TAB PO DAILY, (Reported) Levothyroxine Sodium (Levothyroxine Sodium), 1 TAB PO QAM, (Reported) Losartan Potassium (Losartan Potassium), 1 TAB PO HS, (Reported) Metformin HCl (Metformin HCl), 1 TAB PO BID, (Reported) Potassium Chloride (Potassium Chloride), 1 TAB PO DAILY, (Reported) Discontinued Medications Pantoprazole Sodium (Pantoprazole Sodium), 40 MG PO BKF Discontinued Reason: patient no longer taking Past Medical History Past Medical History: Vertigo, Atrial Fibrillation, High Cholesterol, Hypertension, Diabetes Past Surgical History: cholecystectomy Alcohol Use: Occasionally Drug Use: none Lives with: Family Lives In: Home Review of Systems ROS All review of systems negative except as per HPI Physical Exam Vital Signs: Temperature: 98.7, Source: Oral, Heart Rate: 88, Respiratory Rate: 16, BP: 134/75, Pulse Oximetry: 95, Weight: 111.360 Physical Exam General: Patient is awake, alert, oriented x4 in no acute distress and well appearing.~ Head: Normocephalic and atraumatic. Eyes: Conjunctival normal. EOMI. PERRL. ENT: Mucous membranes moist. Neck: Supple, trachea is midline. Chest: Clear to auscultation bilaterally without rales, rhonchi, or wheezes. There is no accessory muscle use or retractions. Cardiac: RRR without murmurs, gallops, or rubs. Extremity: Negative logroll on right side, neurovascularly intact Progress Results/Orders Results/Orders Orders - ANTWON LAZAR MD Tib/Fib (08/19/24 03:25) Foot, Complete (3vw Min) (08/19/24 03:14) Hip Unilateral 2 Views (08/19/24 03:14) Page Hospitalist (08/19/24 04:18) Fill Out Med Reconciliation (08/19/24 04:18) Completed Orders - ANTWON LAZAR MD Tib/Fib (08/19/24 03:25) Foot, Complete (3vw Min) (08/19/24 03:14) Hip Unilateral 2 Views (08/19/24 03:14) Cbc/Diff (08/19/24 03:14) BMP (08/19/24 03:14) Acetaminophen 325mg Tablet (Tylenol Tabl (08/19/24 04:10) MG (08/19/24 03:07) Ua W/Microscopic, Cult If Ind (08/19/24 06:19) Vital Signs 08/19/24 08/19/24 03:01 03:38 Temp 98.7 Pulse 88 Resp 16 16 B/P (MAP) 134/75 Pulse Ox 95 Laboratory Tests Test 08/19/24 03:07 White Blood Count 9.8 Red Blood Count 4.82 Hemoglobin 14.5 Hematocrit 42.9 Mean Corpuscular Volume 89.1 Mean Corpuscular Hemoglobin 30.2 Mean Corpuscular Hemoglobin Concent 33.8 Red Cell Distribution Width 14.2 Platelet Count 231 Mean Platelet Volume 8.7 Neutrophils (%) (Auto) 81.4 H Lymphocytes (%) (Auto) 10.0 L Monocytes (%) (Auto) 7.3 Eosinophils (%) (Auto) 0.8 Basophils (%) (Auto) 0.5 Neutrophils # (Auto) 7.9 H Lymphocytes # (Auto) 1.0 L Monocytes # (Auto) 0.7 Eosinophils # (Auto) 0.1 Basophils # (Auto) 0.0 CBC Comment Sodium Level 137 Potassium Level 4.3 Chloride Level 101 Carbon Dioxide Level 26.6 Anion Gap 9 Blood Urea Nitrogen 15 Creatinine 0.73 Estimated GFR/1.73 m2 78 BUN/Creatinine Ratio 20.5 H Glucose Level 286 H Calcium Level 9.3 Magnesium Level 1.5 Albumin 3.8 Chemistry Comments Medical Decision Making Findings Patient presented to the emergency room for evaluation after falling. Differentials include but are not limited to stroke, fractures, dislocations, soft tissue injury. Patient's gait disturbances had profound worsening in his this juncture she is not safe for discharge. Possible trochanteric fracture. We will consult with orthopedist. Departure Admitted to Inpatient Unit: yes, to hospitalist Impression: Primary Impression: Fall Additional Impression: Possible hip fracture Referrals: NO PRIMARY CARE PROVIDER (PCP) Signature Scribe Signature: No scribe Attestation: The note accurately reflects work and decisions made by me.Antwon Lazar MD 08/20/24 02:32 ANTWON LAZAR MD Aug 19, 2024 04:17
[2024-08-19 04:19] LABS: MAGNESIUM 1.5 MG/DL (1.5-2.4)
[2024-08-19] MEDS ORDERED: ondansetron/PF 4mg/2ml inj IV PRN (05:00)
[2024-08-19] MEDS ORDERED: morphine 2 MG/ML inj. syringe IV PRN ×2 (05:00)
[2024-08-19] MEDS ORDERED: acetaminophen 325mg tablet PO PRN ×2 (05:00)
[2024-08-19] MEDS ORDERED: HYDROcodone/acetaminophen 10/325mg tab PO PRN (05:00)
[2024-08-19] MEDS ORDERED: potassium Cl 40MEQ/1/2NS 520ml 520 ML IV PRN (05:00)
[2024-08-19] MEDS ORDERED: mag hydrox/Alum hydrox/simeth 30ml oral suspension PO PRN (05:00)
[2024-08-19] MEDS ORDERED: magnesium hydroxide 30ml (MOM) UD suspension PO PRN (05:00)
[2024-08-19] MEDS ORDERED: potassium Cl 20 mEq SR tablet PO PRN ×2 (05:00)
[2024-08-19] MEDS ORDERED: magnesium sulf-water 2g/50mL 50 ML IV PRN (05:00)
[2024-08-19] MEDS ORDERED: magnesium sulf-water 4G/100mL 100 ML IV PRN (05:00)
[2024-08-19] MEDS ORDERED: magnesium Cl slow-release 64mg tablet PO PRN (05:00)
--- NOTE | 2024-08-19 05:02 | HISTORY AND PHYSICAL-Residence ---
History & Physical Providers to CC Resident Creating Document: TELMA BAUM, YURIDIA ~ History of Present Illness Primary Medical Doctor: NONE Reason for Admit\Complaint: Ground level fall, right femur fracture, rt medial malleolus fracture History of Present Illness 73-year-old female with past medical history of type 2 diabetes mellitus, AFib, hypertension, hyperlipidemia presented to the ER after ground level fall. She endorses that she has been with weakness of right leg and right knee which is growing more recently than she had a fall in shower for 1st time with unsteady gait. Patient has been feeling weakness in her right leg for some time however she has been packing to move to [place] in his seems to have had worsening of symptoms. Last night patient fell in the shower by her knee giving out. No head strike. She was unable to get up and ended up crawling to the living room calling her son who is able to help her up. She then tried to ambulate to the bathroom with a cane and fell again which prompted her to call EMS and now she is here. She denies head strike although she is on blood thinners. She endorses lower back ache, pain in right three, four, five and she is not able to bend the knee. She denied slurring of speech, deviation of angle of mouth, seizures. Discussed with the code status with the patient and patient wants to be full code Allergies: Coded Allergies: codeine (Verified Allergy, Mild, 08/19/24) Home Medications Home Medications Active Pantoprazole Sodium 40 Mg Tablet.dr 40 Mg PO BKF Reported Diltiazem 24HR Er (Diltiazem Hcl) 240 Mg Cap.sr.24h 1 Cap PO DAILY Eliquis (Apixaban) 5 Mg Tablet 1 Tab PO Q12H Lipitor* (Atorvastatin Calcium) 20 Mg Tablet 1 Tablet PO HS Ferrous Sulfate* (Ferrous Sulfate) 325 Mg Tablet 1 Tab PO DAILY Levothyroxine Sodium 150 Mcg Tablet 1 Tab PO QAM Losartan Potassium 100 Mg Tablet 1 Tab PO HS Metformin HCl 1,000 Mg Tablet 1 Tab PO BID Potassium Chloride 20 Meq Tablet.er 1 Tab PO DAILY Past Medical History Past Medical History Type 2 diabetes mellitus AFib Hypertension Hyperlipidemia Past Surgical History Surgical History Comment Cholecystectomy Left TKR Tonsillectomy Past Social History Smoking: Non-Smoker Alcohol Use: Occasionally Drug Use: None Lives with: Alone Lives In: Home ROS All Other Systems: Reviewed and Negative ROS Reviewed in full and negative except for positive pertinent as in the HPI Exam Vitals: Vital Signs Date Time Temp Pulse Resp B/P (MAP) Pulse Ox O2 Delivery O2 Flow Rate FiO2 08/19/24 03:38 16 08/19/24 03:01 98.7 88 134/75 95 General: General: Patient is awake, alert, oriented x4 in no acute distress and well appearing. Head: Normocephalic and atraumatic. No JVD, no carotid upstroke. Eyes: Conjunctival normal. EOMI. PERRL. ENT: Mucous membranes moist. Neck: Supple, trachea is midline. Respiratory system: Clear to auscultation bilaterally without rales, rhonchi, or wheezes. There is no accessory muscle use or retractions. Cardiovascular system: RRR without murmurs, gallops, or rubs. Extremity: Negative logroll on right side, neurovascularly intact Neurological system: No functional neurological deficits Skin: Warm and dry Diagnostic Data Last Recorded Lab Results: 08/19/24 0307 08/19/24 0307 Advance Care Planning Advanced Care planning: Add on additional 30 min Additional Plan Ground level fall Right medial malleolus fracture possible Right proximal femur- greater trochanter fracture Vitals are stable. CBC and CMP is okay Pelvis and hip x-ray FINDINGS/IMPRESSION: 1. Distracted fracture of the right proximal femoral greater trochanter, timing unknown. This fracture may be acute or chronic. Evaluation of fine detail is severely limited by the patient's large body habitus. 2. No other fractures are identified about the pelvis or left hip. 3. Mild Osteoarthritis of the left hip. 4. The iliac crests are not fully imaged here. 5. Surgical clip in the right mid pelvis. Right lower leg x-ray impression FINDINGS/IMPRESSION: 1. Possible mildly displaced fracture of the medial malleolus, only seen in the periphery of the AP view. Recommend formal radiographs of the right ankle for better characterization. 2. No other evidence of fracture about the right tibia or fibula. 3. [id number] osteoarthritis of the right knee, greatest in the medial compartment. 4. Abundant subcutaneous adipose tissue consistent with obesit Consulted Dr. Rain by ER physician, Dr. Lazar(via text). We will appreciate the recommendations of Dr. Rain On pain medications of morphine and Tuthill p.r.n. In NPO Type 2 diabetes mellitus Ordered A1c and blood glucose is 286 on patient is on home medications of 1000 mg p.o. b.i.d. of metformin On Humalog low-dose insulin protocol Continue to monitor blood glucose with a target of 140-180 Hypertension Blood pressure in 130s On home medication losartan 100 mg AFib On Eliquis 5 mg p.o. b.i.d., diltiazem 240 mg We will continue after medication reconciliation Hyperlipidemia Ordered lipid panel. We will continue atorvastatin 20 mg p.o. q.h.s. Hypothyroidism Other TSH We will continue levothyroxine 175 mcg after medication reconciliation Code status: Full code Diet: NPO DVT prophylaxis : subQ heparin PT: Ordered Prognosis: Guarded Telma Baum IM resident Date of Service: Aug 19, 2024 Billing Provider: SHAWNEE GOLDEN MD, VENKATESH, RES Aug 19, 2024 05:02
[2024-08-19] MEDS ORDERED: dextrose 50%-water 50ml dispensing syringe IV PRN ×2 (05:30)
[2024-08-19] MEDS ORDERED: DEXTROSE 15 GM of carb/4 tabs (each vial/BOTTLE has 4 tablets) PO PRN ×2 (05:30)
[2024-08-19] MEDS ORDERED: glucagon, human recombinant 1mg kit SUBCUT PRN (05:30)
--- NOTE | 2024-08-19 06:10 | RADIOLOGY REPORT ---
EXAM: CT CT HEAD HISTORY: RIGHT UPPER AND LOWER EXTREMITY WEAKNESS COMPARISON: None TECHNIQUE: Noncontrast axial CT images of the head were performed. Sagittal and coronal reformatted i mages were obtained. This CT exam was performed using 1 or more of the following dose reduction techn iques: Automated exposure control, adjustment of the mA and/or kv according to patient size, or the u se of iterative reconstruction techniques. Radiation Dose: CTDI volume is 57.07 mGy. Dose-length product is 1044.88 mGy*cm FINDINGS: There is mild global brain atrophy. There is mild decreased attenuation in the periventricular white matter. There are faint bilateral basal ganglia calcifications. No intracranial hemorrhage, mass, m idline shift, hydrocephalus, or evidence of acute large vessel infarct. The partially-visualized para nasal sinuses are clear. The bilateral mastoid air cells and middle ear spaces are clear. No cranial fracture or scalp edema. IMPRESSION: Mild global brain atrophy and chronic ischemic changes without evidence of acute intracranial process .
[2024-08-19] MEDS: normal saline 1000ml 1,000 ML IV SCH (06:12)
[2024-08-19] MEDS: INSULIN LISPRO 100 UNIT/ML INSULN.PEN MULTI-DOSE SQ SCH (06:46)
[2024-08-19] MEDS: K and/or MAG REPLACEMENT MC SCH (06:46)
--- NOTE | 2024-08-19 06:48 | RADIOLOGY REPORT ---
EXAM: DI CHEST,SINGLE VIEW HISTORY: Femur fracture COMPARISON: CHEST,SINGLE VIEW on DOS: 08/17/22 TECHNIQUE: Portable upright AP view of the chest was performed. FINDINGS: No pneumothorax or consolidative infiltrates. There is mild central interstitial prominence. The hear t is enlarged. There is abundant overlying adipose tissue. There is mild thoracic spondylosis and de xtroscoliosis. IMPRESSION: 1. Mild central interstitial prominence may be due to reactive airways disease or mild CHF. This ozzy earance may be exaggerated by abundant overlying soft tissue. 2. Cardiomegaly.
[2024-08-19 06:58] LABS: BILIRUBIN,URINE NEGATIVE (Neg); CLARITY,URINE CLEAR (Clear); COLOR,URINE YELLOW (Yellow); GLUCOSE, URINE >=1000 mg/dl (Neg); KETONES,URINE 15 mg/dl (Neg); LEUKOCYTE ESTERASE ,URINE NEGATIVE (Neg); NITRITES, URINE NEGATIVE (Neg); OCCULT BLOOD,URINE NEGATIVE (Neg); PH,URINE 5.5 (4.8-8.0); PROTEIN,URINE NEGATIVE (Neg); UROBILINOGEN,URINE 0.2 E.U/dL (0.2-1.0)
[2024-08-19 07:08] LABS: UA COLLECTION TYPE NON-SPECIFIED
[2024-08-19 07:13] LABS: APTT 27 SECONDS (22-32); INR 1.1 INR; PROTHROMBIN TIME 10.9 SECONDS (9.0-12.0)
[2024-08-19 07:26] LABS: BACTERIA,URINE NONE SEEN /HPF (Neg); MUCUS STRANDS NONE SEEN /LPF (Neg); RBC,URINE NONE SEEN /HPF (0-2); SQUAMOUS EPITHELIAL CELL,UR NONE SEEN /LPF (FEW); WBC,URINE 0-4 /HPF (0-4)
[2024-08-19 07:29] LABS: CHOL/HDL RATIO 2.3 (0.00-4.99); CHOLESTEROL 121 MG/DL (0-200); HDL CHOLESTEROL 52 MG/DL (35-60); LDL CHOLESTEROL 53 MG/DL (50-100); POTASSIUM 3.9 MMOL/L (3.5-5.1); TRIGLYCERIDES 75 MG/DL (20-135)
[2024-08-19 07:54] VITALS: BP 146/66; PULSE 83; RESP 17; TEMP 97.6; O2SAT 94
[2024-08-19 07:57] LABS: THYROID STIMULATING HORMONE 7.13 ulU/ml (0.34-4.50)
[2024-08-19] MEDS ORDERED: docusate sod 100mg capsule PO SCH (08:00)
[2024-08-19] MEDS: heparin, porcine 5000 units/ml vial SQ SCH (08:00)
[2024-08-19] MEDS: HYDROcodone/acetaminophen 5mg/325mg tablet PO PRN (11:27)
[2024-08-19 12:03] VITALS: BP 142/72; PULSE 77; RESP 16; TEMP 97.6; O2SAT 96
--- NOTE | 2024-08-19 13:51 | RADIOLOGY REPORT ---
EXAM: DI FOOT, COMPLETE (3VW MIN) CLINICAL INDICATION: RT.foot pain s/p fall TECHNIQUE: DI FOOT, COMPLETE (3VW MIN) Comparison: DI FOOT, COMPLETE (3VW MIN) on DOS: 08/19/24 FINDINGS/IMPRESSION: There is no evidence of acute fracture or dislocation. The visualized joint space is well maintained. The alignment is anatomical. There is no radiopaque foreign body. Diffuse soft tissue swelling.
--- NOTE | 2024-08-19 17:32 | CONSULTATION REPORT ---
History of Present Illness Providers to CC ~ Reason for Admit\Admit Dx: Ground level fall, right femur fracture, rt medial malleolus fracture Refering MD: NONE History of Present Illness Orthopedic consultation. History of present illness: 73-year-old female who suffered a slip and fall today and the kitchen with initial complaints of right knee pain and leg pain was unable to ambulate so she was brought to the emergency room for evaluation workup included x-rays CT scan of the head and the only significant finding was a greater trochanteric fracture that could be old finding on her right hip. She gives a history of having increasing weakness and pain involving her right leg for the past 2-3 months with episodes of giving out from underneath her Review of systems: Patient currently is complaining of right knee pain right hip pain and right leg pain radiating from her lower back. Patient has a history of low back pain patient is 5 ft three 245 lb. Orthopedic examination: Patient does have some pain at the tip of the greater trochanter and internal external rotation of the hip also gives her some discomfort but not severe. Her right knee exam is compromised by her obesity with a collateral and cruciate ligaments appear to be intact there was no ecchymosis there was no skin disruption as good distal pulses and normal function to her ankle and foot. X-rays: Are within normal limits to her right knee avulsion type fracture of the greater trochanter without obvious extension into the femoral neck or intertrochanteric region. Assessment: Right hip pain right knee pain low back pain possible radiculopathy. Plan: CT scan of the right hip to evaluate for potential femoral neck and/or intertrochanteric hip fracture due to a level pain and findings of a greater trochanteric fracture which could likely also be part of a extended fracture line into the femoral neck or intertrochanteric region. Knee immobilizer for a right knee to help with physical therapy if the CT scan is negative for femoral neck or intertrochanteric hip fracture. Thank you for the consultation Allergies: Coded Allergies: codeine (Verified Allergy, Mild, 08/19/24) Home Medications Home Medications Active Reported Diltiazem 24HR Er (Diltiazem Hcl) 240 Mg Cap.sr.24h 1 Cap PO DAILY Eliquis (Apixaban) 5 Mg Tablet 1 Tab PO Q12H Lipitor* (Atorvastatin Calcium) 20 Mg Tablet 1 Tablet PO HS Ferrous Sulfate* (Ferrous Sulfate) 325 Mg Tablet 1 Tab PO DAILY Levothyroxine Sodium 150 Mcg Tablet 1 Tab PO QAM Losartan Potassium 100 Mg Tablet 1 Tab PO HS Metformin HCl 1,000 Mg Tablet 1 Tab PO BID Potassium Chloride 20 Meq Tablet.er 1 Tab PO DAILY Past Family History Family History: Heart attack Physical Exam Last Vital Signs Recorded: Temperature: 97.6, Source: Oral, Heart Rate: 77, Respiratory Rate: 16, BP: 142/72, Pulse Oximetry: 96, Weight: 111.360 Results Diagram Lab Result Diagram: 08/19/24 0307 08/19/24 0617 HAWA BEYER MD Aug 19, 2024 17:32
[2024-08-19 18:00] VITALS: BP 107/74; PULSE 92; RESP 17; TEMP 97; O2SAT 94
--- NOTE | 2024-08-19 18:50 | PROGRESS NOTE ---
Daily Progress Note Providers to CC ~ Antibiotic Timeout Antibiotic Ordered?: No Subjective Patient was seen in presence of nursing staff pain controlled on pain medication patient was evaluated by Dr. Rain today who recommended CT scan of right hip to evaluate for potential femoral neck and/or intertrochanteric hip fracture . He recommended Knee immobilizer for a right knee to help with physical therapy if the CT scan is negative for femoral neck or intertrochanteric hip fracture. Objective Vital Signs Date Time Temp Pulse Resp B/P (MAP) Pulse Ox O2 Delivery O2 Flow Rate FiO2 08/19/24 18:00 97.0 92 17 107/74 (85) 94 Room Air 08/19/24 06:37 0 Result Diagram: 08/19/24 0307 08/19/24 0617 General-patient not in any acute distress, alert awake oriented, obese age- appropriate HEENT-atraumatic normocephalic, neck supple without elevated JVD, no thyromegaly or carotid bruit. No lymphadenopathy bilaterally. Eyes-no icterus or pallor seen in eyes Chest-clear to auscultation bilaterally, breathing nonlabored no tachypnea, no wheezing, no crepitation, no crackles. Heart-S1-S2 normal, regular heart rate no murmur Abdomen bowel sounds positive on auscultation, soft nondistended nontender no guarding, no rigidity Skin no active skin rash, no ecchymosis Neurology-grossly intact, nonfocal alert awake oriented Extremity- no pedal edema , able to wiggle her toes, signs of tenderness present over right femur area Psychiatry - patient is not confused or agitated cooperated well during physical examination Coagulation Studies Laboratory Tests Test 08/19/24 06:17 Prothrombin Time 10.9 SECONDS (9.0-12.0) INR International Normalized Ratio 1.1 INR Activated Partial Thromboplast Time 27 SECONDS (22-32) Coagulation Comments Problem\Assessment\Plan Ground level fall Right medial malleolus fracture possible Right proximal femur- greater trochanter fracture Pelvis and hip x-ray FINDINGS/IMPRESSION: 1. Distracted fracture of the right proximal femoral greater trochanter, timing unknown. This fracture may be acute or chronic. Evaluation of fine detail is severely limited by the patient's large body habitus. 2. No other fractures are identified about the pelvis or left hip. 3. Mild Osteoarthritis of the left hip. 4. The iliac crests are not fully imaged here. 5. Surgical clip in the right mid pelvis. Right lower leg x-ray impression FINDINGS/IMPRESSION: 1. Possible mildly displaced fracture of the medial malleolus, only seen in the periphery of the AP view. Recommend formal radiographs of the right ankle for better characterization. 2. No other evidence of fracture about the right tibia or fibula. 3. Kwwj-lh-gaoeifgh osteoarthritis of the right knee, greatest in the medial compartment. 4. Abundant subcutaneous adipose tissue consistent with obesit Consulted Dr. Rain by ER physician, Dr. Lazar(via text). We will appreciate the recommendations of Dr. Rain On pain medications of morphine and [place] p.r.n. patient was evaluated by Dr. Rain today who recommended CT scan of right hip to evaluate for potential femoral neck and/or intertrochanteric hip fracture . He recommended Knee immobilizer for a right knee to help with physical therapy if the CT scan is negative for femoral neck or intertrochanteric hip fracture. Type 2 diabetes mellitus Ordered A1c and blood glucose is 286 on patient is on home medications of 1000 mg p.o. b.i.d. of metformin On Humalog low-dose insulin protocol Continue to monitor blood glucose with a target of 140-180 Hypertension Blood pressure in 130s On home medication losartan 100 mg AFib On Eliquis 5 mg p.o. b.i.d., diltiazem 240 mg We will continue after medication reconciliation Hyperlipidemia Ordered lipid panel. We will continue atorvastatin 20 mg p.o. q.h.s. Hypothyroidism Other TSH We will continue levothyroxine 175 mcg after medication reconciliation Code status: Full code Diet: NPO DVT prophylaxis : subQ heparin PT: Ordered Patient's current condition is guarded we will continue to follow patient in AM . Date of Service: Aug 19, 2024 Billing Provider: RODRIGO REMY MD Common Visit Codes: [id number] INP/OBS CARE(HIGH) RODRIGO REMY MD Aug 19, 2024 18:50
[2024-08-19] MEDS: ferrous sulfate 325mg tablet PO SCH (18:55)
--- NOTE | 2024-08-19 18:59 | RADIOLOGY REPORT ---
EXAM: CT CT LOWER EXTREMITY INDICATION: right hip pain TECHNIQUE: Axial images of right lower extremity without contrast have been obtained along with coron al and sagittal reformatted images. All CT scans at this facility use dose modulation, iterative susan nstruction, and/or weight based dosing when appropriate to reduce radiation dose to as low as reasona chris achievable. COMPARISON: None FINDINGS: BONES: No CT evidence of an acute fracture or aggressive osseous lesion. MUSCLES: Trace amount edematous appearance and increased density along the margin of the proximal rec tus femoris muscle belly (4-42). Consideration of muscle strain. JOINT SPACES: No joint effusion. TENDONS/LIGAMENTS: Heterotopic ossification/ossicle measuring 1.4 cm superior to the right greater tr ochanter. OTHER: None. IMPRESSION: 1. Trace amount edematous appearance and increased density along the margin of the proximal rectus fe arnie muscle belly. Consideration of muscle strain. 2. Heterotopic ossification/ossicle measuring 1.4 cm superior to the right greater trochanter.
[2024-08-19] MEDS: atorvastatin 20mg tablet PO SCH (19:26)
[2024-08-19 22:00] VITALS: BP 114/57; PULSE 69; RESP 18; TEMP 98; O2SAT 94
[2024-08-20 05:01] LABS: BASOPHILS % (AUTO) 0.9 % (0-1); EOSINOPHILS # (AUTO) 0.1 X10'3 (0-0.9); EOSINOPHILS % (AUTO) 2.3 % (0-6); HEMATOCRIT 39.5 % (35.0-45.0); HEMOGLOBIN 13.6 g/dl (12.0-16.0); LYMPHOCYTES % (AUTO) 18.6 % (21-51); MEAN CORPUSCULAR HEMOGLOBIN 30.5 PG (27.0-31.0); MEAN CORPUSCULAR HGB CONC 34.4 g/dL (33.0-36.5); MEAN CORPUSCULAR VOLUME 88.8 FL (78-98); MEAN PLATELET VOLUME 8.2 FL (7.4-10.4); MONOCYTES # (AUTO) 0.5 X10'3 (0-0.9); NEUTROPHILS # (AUTO) 3.6 X10'3 (1.8-7.7); NEUTROPHILS % (AUTO) 69.2 % (42-75); PLATELET COUNT 197 X10'3 (140-440); RED BLOOD COUNT 4.44 X10'6 (4.20-5.60); WHITE BLOOD COUNT 5.2 X10'3 (4.5-11.0)
[2024-08-20 05:36] LABS: ALANINE AMINOTRANSFERASE 17 U/L (12-78); ALBUMIN 2.9 G/DL (3.4-5.0); ALKALINE PHOSPHATASE 91 IU/L (46-116); ANION GAP 8 (8-16); ASPARTATE AMINO TRANSFERASE 17 U/L (10-37); BILIRUBIN,TOTAL 0.8 MG/DL (0.1-1.0); BLOOD UREA NITROGEN 6 MG/DL (7-18); BUN/CREATININE RATIO 12.2 (10.0-20.0); CALCIUM 8.9 MG/DL (8.5-10.1); CHLORIDE 101 MMOL/L (99-107); CREATININE 0.49 MG/DL (0.40-0.90); GLUCOSE 205 MG/DL (70-104); SODIUM 137 MMOL/L (135-145); TOTAL CARBON DIOXIDE 27.9 MMOL/L (24-32); TOTAL PROTEIN 5.9 G/DL (6.4-8.2); eCRCL 85 ML/MIN; eGFR > 90 ML/MIN
[2024-08-20 06:00] VITALS: BP 149/88; PULSE 102; RESP 16; TEMP 97.1; O2SAT 94
[2024-08-20 07:32] VITALS: RESP 16; O2SAT 94
[2024-08-20] MEDS: diltiazem CD 120mg capsule (once-daily) PO SCH (08:07)
[2024-08-20] MEDS: levoTHYROXINE 75mcg tablet PO SCH (08:07)
[2024-08-20 10:00] VITALS: BP 151/90; PULSE 96; RESP 18; TEMP 97.2; O2SAT 96
--- NOTE | 2024-08-20 16:24 | PROGRESS NOTE ---
Daily Progress Note Providers to CC ~ Antibiotic Timeout Antibiotic Ordered?: No Subjective Patient was sitting on reclining chair looks comfortable. Patient feels that she has weakness over the right lower extremity. Physical therapy evaluation done and will review their recommendation. MRI of lumbar spine ordered today. Patient was evaluated by Dr. Rain and reviewed the consultation note. Objective Vital Signs Date Time Temp Pulse Resp B/P (MAP) Pulse Ox O2 Delivery O2 Flow Rate FiO2 08/20/24 10:00 97.2 96 18 151/90 (110) 96 Room Air 08/19/24 06:37 0 Result Diagram: 08/20/24 0442 08/20/24 0442 General-patient not in any acute distress, alert awake oriented, obese age- appropriate HEENT-atraumatic normocephalic, neck supple without elevated JVD, no thyromegaly or carotid bruit. No lymphadenopathy bilaterally. Eyes-no icterus or pallor seen in eyes Chest-clear to auscultation bilaterally, breathing nonlabored no tachypnea, no wheezing, no crepitation, no crackles. Heart-S1-S2 normal, regular heart rate no murmur Abdomen bowel sounds positive on auscultation, soft nondistended nontender no guarding, no rigidity Skin no active skin rash, no ecchymosis Neurology-grossly intact, nonfocal alert awake oriented Extremity- no pedal edema bilaterally Psychiatry - patient is not confused or agitated cooperated well during physical examination Coagulation Studies Laboratory Tests Test 08/19/24 06:17 Prothrombin Time 10.9 SECONDS (9.0-12.0) INR International Normalized Ratio 1.1 INR Activated Partial Thromboplast Time 27 SECONDS (22-32) Coagulation Comments Problem\Assessment\Plan Ground level fall Right medial malleolus fracture possible Right proximal femur- greater trochanter fracture Pelvis and hip x-ray FINDINGS/IMPRESSION: 1. Distracted fracture of the right proximal femoral greater trochanter, timing unknown. This fracture may be acute or chronic. Evaluation of fine detail is severely limited by the patient's large body habitus. 2. No other fractures are identified about the pelvis or left hip. 3. Mild Osteoarthritis of the left hip. 4. The iliac crests are not fully imaged here. 5. Surgical clip in the right mid pelvis. Right lower leg x-ray impression FINDINGS/IMPRESSION: 1. Possible mildly displaced fracture of the medial malleolus, only seen in the periphery of the AP view. Recommend formal radiographs of the right ankle for better characterization. 2. No other evidence of fracture about the right tibia or fibula. 3. Qahy-ac-kfnliqxg osteoarthritis of the right knee, greatest in the medial compartment. 4. Abundant subcutaneous adipose tissue consistent with obesit Consulted Dr. Rain by ER physician, Dr. Lazar(via text). We will appreciate the recommendations of Dr. Rain On pain medications of morphine and [place] p.r.n. patient was evaluated by Dr. Rain today who recommended CT scan of right hip to evaluate for potential femoral neck and/or intertrochanteric hip fracture . He recommended Knee immobilizer for a right knee to help with physical therapy if the CT scan is negative for femoral neck or intertrochanteric hip fracture. Type 2 diabetes mellitus 9.6 hemoglobin A1c and blood glucose is 286 on patient is on home medications of 1000 mg p.o. b.i.d. of metformin On Humalog low-dose insulin protocol Continue to monitor blood glucose with a target of 140-180 Hypertension Blood pressure in 130s On home medication losartan 100 mg AFib On Eliquis 5 mg p.o. b.i.d., diltiazem 240 mg We will continue after medication reconciliation Hyperlipidemia Ordered lipid panel. We will continue atorvastatin 20 mg p.o. q.h.s. Hypothyroidism Other TSH We will continue levothyroxine 175 mcg after medication reconciliation Code status: Full code Diet: NPO DVT prophylaxis : subQ heparin PT: Ordered Patient's current condition is guarded we will continue to follow patient in AM . Date of Service: Aug 20, 2024 Billing Provider: RODRIGO REMY MD Common Visit Codes: [id number] INP/OBS CARE(HIGH) RODRIGO REMY MD Aug 20, 2024 16:24
--- NOTE | 2024-08-20 16:28 | RADIOLOGY REPORT ---
PROCEDURE: MR MRI LUMBAR SPINE INDICATION: RT LOWER LEG WEAKNESS Exam Date: 08/20/2024 03:21 PM COMPARISON: None TECHNIQUE: MRI lumbar spine without intravenous contrast. FINDINGS: The lumbar alignment is intact. There are degenerative endplate changes including modic endplate ch anges with anterior and lateral osteophytes throughout the lumbar spine. The visualized distal spinal cord and conus medullaris are within normal limits. The conus medullaris appears to terminate withi n normal limits. The visualized retroperitoneal and paraspinal soft tissues are unremarkable. The following axial levels are detailed below: T12-L1: There is a mild circumferential disc bulge. No significant central canal or neuroforaminal s tenosis. L1-L2: Unremarkable. L2-L3: There is a mild circumferential disc bulge. No significant central canal or neuroforaminal s tenosis. L3-L4: There is a severe circumferential disc bulge complicated by facet arthropathy narrowing the central canal to 3 mm with associated moderate to severe right neuroforaminal stenosis. L4-L5: There is a severe circumferential disc bulge complicated by facet arthropathy narrowing the central canal to 6 mm with associated moderate left neuroforaminal stenosis. L5-S1: There is a moderate circumferential disc bulge complicated by facet arthropathy associated wi th mild to moderate left neuroforaminal stenosis. No significant central canal stenosis. IMPRESSION: 1. Multilevel degenerative disease. Severe central canal stenosis L3-4 and L4-5. Neural foraminal s tenosis as above. Neurosurgical evaluation is recommended. HS:Y
[2024-08-20 18:00] VITALS: BP 155/71; PULSE 80; RESP 18; TEMP 97.2; O2SAT 96
--- NOTE | 2024-08-20 18:11 | PROGRESS NOTE ---
Progress Note Dictate Providers to CC ~ Progress Note: Orthopedic progress note. Subjective: Patient has had some decreased pain and has begun physical therapy. Objective: Patient does have some pain along the medial malleolus to palpation. X-rays reveal a small erosion fracture of the medial malleolus which is a stable injury needs protection with the ankle brace. X-rays of the hip and CT scan of the hip reveal no proximal femur fracture involving the femoral neck or intertrochanteric probable the avulsion fracture of the greater tuberosity. Assessment: Medial malleolus avulsion fracture stable. Greater tuberosity fracture right hip stable. Plan: Advanced a weightbearing as tolerated ankle brace with ambulation discontinue the knee immobilizer no further orthopedic intervention is anticipated mobilize as possible Antibiotic Ordered?: Yes Objective Vitals Vital Signs Date Time Temp Pulse Resp B/P (MAP) Pulse Ox O2 Delivery O2 Flow Rate FiO2 08/22/24 10:00 97.1 95 16 120/63 (82) 100 Room Air 08/21/24 18:58 0.0 Lab Results: 08/22/24 0533 08/22/24 0533 Coagulation Studies Laboratory Tests Test 08/19/24 06:17 Prothrombin Time 10.9 SECONDS (9.0-12.0) INR International Normalized Ratio 1.1 INR Activated Partial Thromboplast Time 27 SECONDS (22-32) Coagulation Comments HAWA BEYER MD Aug 20, 2024 18:11
[2024-08-20] MEDS ORDERED: cyclobenzaprine 10mg tablet PO PRN (18:20)
--- NOTE | 2024-08-20 18:27 | CONSULTATION REPORT ---
History of Present Illness Providers to CC ~ Reason for Admit\Admit Dx: Ground level fall, right femur fracture, rt medial malleolus fracture Refering MD: hospitalist History of Present Illness This is a 73-year-old female who suffered a slip and fall on day of admission at her kitchen with initial complaints of right knee pain and leg pain was unable to ambulate so she was brought to the emergency room for evaluation workup included x-rays CT scan of the head and the only significant finding was a greater trochanteric fracture. She gives a history of having increasing weakness and pain involving her right leg for the past 2-3 months with episodes of giving out from underneath her. Sha has also lower back discomfort and radiated or referred pain on the rioght hip and knee. Orthopedic surgery evaluated and ruled out thet her pain was due to hip pathology. patient is 5 ft 3 inches and weights 245 lb. Allergies: Coded Allergies: codeine (Verified Allergy, Mild, 08/19/24) Home Medications Home Medications Active Reported Diltiazem 24HR Er (Diltiazem Hcl) 240 Mg Cap.sr.24h 1 Cap PO DAILY Eliquis (Apixaban) 5 Mg Tablet 1 Tab PO Q12H Lipitor* (Atorvastatin Calcium) 20 Mg Tablet 1 Tablet PO HS Ferrous Sulfate* (Ferrous Sulfate) 325 Mg Tablet 1 Tab PO DAILY Levothyroxine Sodium 150 Mcg Tablet 1 Tab PO QAM Losartan Potassium 100 Mg Tablet 1 Tab PO HS Metformin HCl 1,000 Mg Tablet 1 Tab PO BID Potassium Chloride 20 Meq Tablet.er 1 Tab PO DAILY Past Medical History Medical History Comment per chart Past Surgical History Surgical History Comment per chart Past Family History Family History: Heart attack Physical Exam Last Vital Signs Recorded: Temperature: 97.2, Source: Temporal, Heart Rate: 96, Respiratory Rate: 18, BP: 151/90, Pulse Oximetry: 96, Weight: 111.360 General Appearance: alert, moderate distress, obese EENT: normal ENT inspection Neck: normal inspection, supple, non-tender Respiratory: lungs clear Chest: chest non-tender Cardiovascular: regular rate, rhythm Gastrointestinal: normal palpation, non-tender Bladder: non tender External Genitalia: normal Back: vertebral tenderness Extremities: no edema Neurologic: oriented x4 Skin: normal color Results Results/Orders Results/Orders MRI Lumbar spine shows significant chronic spinal stenosis L3-L4 and L4-L5 more on the right. Diagram Lab Result Diagram: 08/20/24 0442 08/20/24 0442 Assessment/Plan Problems/Diagnosis: (1) Spinal stenosis of lumbar region with radiculopathy Additional Plan Patient is status post fall that may have cause traumatic radiculr irritation due to her lumbar stenosis with worsening of L4 and L5 right radiculopathies. Recommend Cycle of oral steroids for a week, Muscle relaxants. pain control . Ok to discharge to Rehab/ snf facility to help with aided ambulation and care. I will evaluate next week. She may need surgical decompression on the form of Laminectomies and foraminotomies L3-L4 and L4-L5 if no improvement with medical management. I will review CT L spine and pelvis to rule out any sacral undiagnosed fractures and to further characterize the bone condition of the lumbar spine that is not well demonstrated in MRI. RADHA VALERIO MD Aug 20, 2024 18:27
[2024-08-20] MEDS: methylPREDNISolone sod succ/PF 40mg inj. IV SCH (19:19)
--- NOTE | 2024-08-20 20:09 | RADIOLOGY REPORT ---
EXAM: CT CT LUMBAR SPINE INDICATION: right leg pain COMPARISON: MR MRI LUMBAR SPINE on DOS: 08/20/24 TECHNIQUE: Multiple axial CT images of the lumbar spine were obtained using bone algorithm. Axial an d coronal reformatting was done. Bone and soft tissue windows were reviewed. Radiation Dose Information: CT Dose: CTDI volume is 50.59 mGy. Dose-length product is 1576.9 mGy*cm FINDINGS: 5 [id number] lumbar-type vertebrae. Minimal levoconvex curvature of the lumbar spine. The verte bral body heights are maintained. No evidence of acute traumatic fractures . T12-L1: minimal posterior disc osteophyte complex without significant spinal canal or neural foramina stenosis. L1-L2: No significant spinal canal or neural foramina stenosis. L2-L3: Minimal posterior disc bulge without significant spinal canal or neural foramina stenosis. L3-L4: Posterior disc bulge with ligamentum flavum hypertrophy causing severe bilateral lateral reces s narrowing with spinal canal stenosis. Moderate to severe right with mild to moderate left-sided gurjit ral foramina stenosis. L4-L5: Posterior disc bulge with ligamentum flavum hypertrophy causing moderate spinal canal stenosis with severe bilateral lateral recess narrowing. Moderate left with mild right-sided neural foramina stenosis. L5-S1: Minimal posterior disc bulge without significant spinal canal stenosis. [id number] left- sided neural foramina stenosis. The paraspinal muscles unremarkable. IMPRESSION: No evidence of acute traumatic fractures. Severe spinal canal stenosis with severe bilateral lateral recess narrowing at L3-L4 and moderate spi nal canal stenosis with severe bilateral lateral recess narrowing at L4-L5. Moderate to severe Right with Moderate left-sided neural foramina stenosis at L3-L4 and moderate left -sided neural foramina stenosis at L4-L5.
--- NOTE | 2024-08-20 20:50 | RADIOLOGY REPORT ---
CLINICAL HISTORY: right leg pain TECHNIQUE: CT of the pelvis was performed without intravenous contrast. This exam was performed acco rding to our departmental dose optimization program. Up-to-date CT equipment and radiation dose reduc tion techniques are utilized as appropriate. CTDI: 47.58 +0.14 DLP: 1478.34 WID: COMPARISON: None FINDINGS: The visualized pelvic small and large bowel loops are normal in caliber. There is mild distal colonic diverticulosis. Normal appendix. Urinary bladder is mildly distended. The uterus and ovaries are atr ophic. There is no pelvic lymphadenopathy. There is mild calcified plaque in the visualized infrarena l abdominal aorta and iliac vessels. There is intermediate density infiltrating within the proximal right rectus femoris muscle (series 4, image 172). There is mild soft tissue stranding about the right rectus femoris muscle which is asymm etrically slightly enlarged. The muscle bundles about the pelvis are otherwise unremarkable. There is a right of midline fat containing abdominal wall hernia just below the level of the umbilicus. Ther e is a small fat containing umbilical hernia. Moderate degenerative change at L5-S1. There is [id number]-howdstwu bilateral hip osteoarthritis, greate r on the left. Well corticated osseous densities project adjacent to and slightly posterior to the ri ght greater trochanter. IMPRESSION: 1. Slight asymmetric enlargement , intermediate density infiltrating the proximal right rectus femori s muscle with mild surrounding soft tissue stranding. Likely intramuscular blood products / hematoma. 2. Mild distal colonic diverticulosis.
[2024-08-20] MEDS: insulin glargine (Lantus) pen - multi-dose SQ SCH (21:47)
[2024-08-20] MEDS: INSULIN LISPRO 100 UNIT/ML INSULN.PEN MULTI-DOSE SQ SCH (21:47)
[2024-08-20 22:00] VITALS: BP 153/85; PULSE 88; RESP 20; TEMP 97.6; O2SAT 96
[2024-08-21] VITALS (7 sets, daily range): BP systolic 133–166; BP diastolic 75–100; PULSE 78–110; RESP 16–20; TEMP 97.4–98.5; O2SAT 94–98
[2024-08-21 06:20] LABS: BASOPHILS % (AUTO) 0.3 % (0-1); EOSINOPHILS % (AUTO) 0.1 % (0-6); HEMATOCRIT 44.9 % (35.0-45.0); HEMOGLOBIN 14.8 g/dl (12.0-16.0); LYMPHOCYTES # (AUTO) 0.5 X10'3 (1.1-4.8); LYMPHOCYTES % (AUTO) 9.2 % (21-51); MEAN CORPUSCULAR HEMOGLOBIN 29.6 PG (27.0-31.0); MEAN CORPUSCULAR HGB CONC 32.9 g/dL (33.0-36.5); MEAN CORPUSCULAR VOLUME 89.9 FL (78-98); MEAN PLATELET VOLUME 8.4 FL (7.4-10.4); MONOCYTES # (AUTO) 0.1 X10'3 (0-0.9); MONOCYTES % (AUTO) 2.2 % (2-12); NEUTROPHILS # (AUTO) 4.7 X10'3 (1.8-7.7); NEUTROPHILS % (AUTO) 88.2 % (42-75); PLATELET COUNT 211 X10'3 (140-440); RED CELL DISTRIBUTION WIDTH 14.1 % (11.5-14.5); WHITE BLOOD COUNT 5.3 X10'3 (4.5-11.0)
[2024-08-21 06:38] LABS: ALANINE AMINOTRANSFERASE 22 U/L (12-78); ALBUMIN 3.1 G/DL (3.4-5.0); ALBUMIN/GLOBULIN RATIO 0.9 (1.1-1.5); ALKALINE PHOSPHATASE 99 IU/L (46-116); ANION GAP 9 (8-16); ASPARTATE AMINO TRANSFERASE 10 U/L (10-37); BILIRUBIN,TOTAL 0.6 MG/DL (0.1-1.0); BLOOD UREA NITROGEN 10 MG/DL (7-18); BUN/CREATININE RATIO 18.9 (10.0-20.0); CALCIUM 8.8 MG/DL (8.5-10.1); CHLORIDE 102 MMOL/L (99-107); CREATININE 0.53 MG/DL (0.40-0.90); GLUCOSE 266 MG/DL (70-104); POTASSIUM 4.1 MMOL/L (3.5-5.1); SODIUM 136 MMOL/L (135-145); TOTAL CARBON DIOXIDE 25.2 MMOL/L (24-32); TOTAL PROTEIN 6.4 G/DL (6.4-8.2); eCRCL 78 ML/MIN; eGFR > 90 ML/MIN
--- NOTE | 2024-08-21 18:40 | PROGRESS NOTE ---
Daily Progress Note Providers to CC ~ Antibiotic Timeout Antibiotic Ordered?: No Subjective Patient was seen in her room she feels her pain over the right lower extremity and hip is better than yesterday. I did discuss patient's lumbar spine MRI yesterday with neurosurgeon Dr. Ward Funes on phone and he reviewed patient's diagnostic films and recommended to order CT spine lumbar area and pelvic CT. He also advised to add steroids and muscle relaxant and to continue pain management . He is willing to follow with the patient in outpatient setting in his office. He is okay for rehab discharge at this point of time. I reviewed results of pelvic CT and lumbar CT signs of acute fracture noted. Dr. Rain already following the patient. Likely discharge to rehab if clinically stable. Objective Vital Signs Date Time Temp Pulse Resp B/P (MAP) Pulse Ox O2 Delivery O2 Flow Rate FiO2 08/21/24 10:00 97.6 89 16 149/88 (108) 95 Room Air 08/21/24 08:00 0.0 Result Diagram: 08/21/24 0551 08/21/24 0551 General-patient not in any acute distress, alert awake oriented, obese age- appropriate HEENT-atraumatic normocephalic, neck supple without elevated JVD, no thyromegaly or carotid bruit. No lymphadenopathy bilaterally. Eyes-no icterus or pallor seen in eyes Chest-clear to auscultation bilaterally, breathing nonlabored no tachypnea, no wheezing, no crepitation, no crackles. Heart-S1-S2 normal, regular heart rate no murmur Abdomen bowel sounds positive on auscultation, soft nondistended nontender no guarding, no rigidity Skin no active skin rash, no ecchymosis Neurology-grossly intact, nonfocal alert awake oriented Extremity- no pedal edema bilaterally Psychiatry - patient is not confused or agitated cooperated well during physical examination Coagulation Studies Laboratory Tests Test 08/19/24 06:17 Prothrombin Time 10.9 SECONDS (9.0-12.0) INR International Normalized Ratio 1.1 INR Activated Partial Thromboplast Time 27 SECONDS (22-32) Coagulation Comments Problem\Assessment\Plan Ground level fall Right medial malleolus fracture possible Right proximal femur- greater trochanter fracture Pelvis and hip x-ray FINDINGS/IMPRESSION: 1. Distracted fracture of the right proximal femoral greater trochanter, timing unknown. This fracture may be acute or chronic. Evaluation of fine detail is severely limited by the patient's large body habitus. 2. No other fractures are identified about the pelvis or left hip. 3. Mild Osteoarthritis of the left hip. 4. The iliac crests are not fully imaged here. 5. Surgical clip in the right mid pelvis. Right lower leg x-ray impression FINDINGS/IMPRESSION: 1. Possible mildly displaced fracture of the medial malleolus, only seen in the periphery of the AP view. Recommend formal radiographs of the right ankle for better characterization. 2. No other evidence of fracture about the right tibia or fibula. 3. [id number] osteoarthritis of the right knee, greatest in the medial compartment. 4. Abundant subcutaneous adipose tissue consistent with obesit Consulted Dr. Rain by ER physician, Dr. Lazar(via text). We will appreciate the recommendations of Dr. Rain On pain medications of morphine and [place] p.r.n. patient was evaluated by Dr. Rain today who recommended CT scan of right hip to evaluate for potential femoral neck and/or intertrochanteric hip fracture . He recommended Knee immobilizer for a right knee to help with physical therapy if the CT scan is negative for femoral neck or intertrochanteric hip fracture. 08/21/24-Patient was seen in her room she feels her pain over the right lower extremity and hip is better than yesterday. I did discuss patient's lumbar spine MRI yesterday with neurosurgeon Dr. Ward Funes on phone and he reviewed patient's diagnostic films and recommended to order CT spine lumbar area and pelvic CT. He also advised to add steroids and muscle relaxant and to continue pain management . He is willing to follow with the patient in outpatient setting in his office. He is okay for rehab discharge at this point of time. I reviewed results of pelvic CT and lumbar CT signs of acute fracture noted. Dr. Rain already following the patient. Likely discharge to rehab if clinically stable. Type 2 diabetes mellitus 9.6 hemoglobin A1c and blood glucose is 286 on patient is on home medications of 1000 mg p.o. b.i.d. of metformin On Humalog low-dose insulin protocol Continue to monitor blood glucose with a target of 140-180 Hypertension Blood pressure in 130s On home medication losartan 100 mg AFib On Eliquis 5 mg p.o. b.i.d., diltiazem 240 mg We will continue after medication reconciliation Hyperlipidemia Ordered lipid panel. We will continue atorvastatin 20 mg p.o. q.h.s. Hypothyroidism Other TSH We will continue levothyroxine 175 mcg after medication reconciliation Code status: Full code Diet: NPO DVT prophylaxis : subQ heparin PT: Ordered Patient's current condition is guarded we will continue to follow patient in AM . Likely discharge to rehab if clinically stable. manager sourcing Ms. Edmonds working on discharge plan. Date of Service: Aug 21, 2024 Billing Provider: RODRIGO REMY MD Common Visit Codes: [id number] INP/OBS CARE(HIGH) RODRIGO REMY MD Aug 21, 2024 18:40
[2024-08-22 06:00] VITALS: BP 140/77; PULSE 82; RESP 16; TEMP 97.8; O2SAT 92
[2024-08-22 06:32] LABS: BASOPHILS % (AUTO) 0.3 % (0-1); EOSINOPHILS % (AUTO) 0 % (0-6); HEMATOCRIT 40.5 % (35.0-45.0); HEMOGLOBIN 13.9 g/dl (12.0-16.0); LYMPHOCYTES # (AUTO) 0.5 X10'3 (1.1-4.8); LYMPHOCYTES % (AUTO) 9.5 % (21-51); MEAN CORPUSCULAR HEMOGLOBIN 30.4 PG (27.0-31.0); MEAN CORPUSCULAR HGB CONC 34.2 g/dL (33.0-36.5); MEAN CORPUSCULAR VOLUME 88.9 FL (78-98); MEAN PLATELET VOLUME 8.7 FL (7.4-10.4); MONOCYTES # (AUTO) 0.1 X10'3 (0-0.9); MONOCYTES % (AUTO) 2.1 % (2-12); NEUTROPHILS # (AUTO) 4.8 X10'3 (1.8-7.7); NEUTROPHILS % (AUTO) 88.1 % (42-75); PLATELET COUNT 227 X10'3 (140-440); RED BLOOD COUNT 4.56 X10'6 (4.20-5.60); RED CELL DISTRIBUTION WIDTH 13.9 % (11.5-14.5); WHITE BLOOD COUNT 5.5 X10'3 (4.5-11.0)
[2024-08-22 06:47] LABS: ALANINE AMINOTRANSFERASE 22 U/L (12-78); ALKALINE PHOSPHATASE 94 IU/L (46-116); ANION GAP 7 (8-16); ASPARTATE AMINO TRANSFERASE 13 U/L (10-37); BILIRUBIN,TOTAL 0.5 MG/DL (0.1-1.0); BLOOD UREA NITROGEN 16 MG/DL (7-18); CALCIUM 8.9 MG/DL (8.5-10.1); CHLORIDE 102 MMOL/L (99-107); GLUCOSE 277 MG/DL (70-104); POTASSIUM 4.2 MMOL/L (3.5-5.1); SODIUM 137 MMOL/L (135-145); TOTAL CARBON DIOXIDE 28.1 MMOL/L (24-32); TOTAL PROTEIN 6.1 G/DL (6.4-8.2); eCRCL 83 ML/MIN; eGFR > 90 ML/MIN
[2024-08-22 08:00] VITALS: RESP 16; O2SAT 100
[2024-08-22 10:00] VITALS: BP 120/63; PULSE 95; RESP 16; TEMP 97.1; O2SAT 100
--- NOTE | 2024-08-22 17:26 | DISCHARGE SUMMARY ---
Discharge Summary Providers to CC ~ Discharge Summary Admission Diagnosis: DISPLACED FRACTURE OF RIGHT FEMUR GREATER TROCHANTER & MEDIAL MALLEOLUS Hospital Course DATE OF ADMISSION: August 19, 2024 DATE OF DISCHARGE: August 22, 2024 CBC testing done on August 22, 2024 WBC 5.5 hemoglobin 13.9 hematocrit 40.5 p latelet count 227. Serum chemistry done on August 22, 2024 sodium 137 potassium 4.2 creatinine 0.50 GFR greater than 90. Hemoglobin A1c 9.6, urine testing showing greater than 1000 urine blood sugar no signs of UTI Patient had multiple diagnostic scans done during hospitalization which include pelvis CT, lumbar spine CT, lumbar spine MRI, lower extremity CT, head CT, x-ray chest, tibia fibula x-ray, hip x-ray, foot x-ray. Please see the details about the results of diagnostic studies in electronic record system. Discharge Diagnosis\\Comment: Ground level fall Right medial malleolus fracture possible Right hip pain Severe spinal canal stenosis with severe bilateral lateral recess narrowing at L3-L4 and moderate spinal canal stenosis with severe bilateral lateral recess narrowing at L4-L5. Moderate to severe Right with Moderate left-sided neural foramina stenosis at L3-L4 and moderate left-sided neural foramina stenosis at L4-L5. Operations\\Procedures: None Consultants: Dr. Ward Carranza, Dr Rain Complications: None Condition on DC: Stable Discharge Summary: As per admitting provider's history and physical note " 73-year-old female with past medical history of type 2 diabetes mellitus, AFib, hypertension, hyperlipidemia presented to the ER after ground level fall. She endorses that she has been with weakness of right leg and right knee which is growing more recently than she had a fall in shower for 1st time with unsteady gait. Patient has been feeling weakness in her right leg for some time however she has been packing to move to [place] in his seems to have had worsening of symptoms. Last night patient fell in the shower by her knee giving out. No head strike. She was unable to get up and ended up crawling to the living room calling her son who is able to help her up. She then tried to ambulate to the bathroom with a cane and fell again which prompted her to call EMS and now she is here. She denies head strike although she is on blood thinners. She endorses lower back ache, pain in right three, four, five and she is not able to bend the knee. She denied slurring of speech, deviation of angle of mouth, seizures." During hospitalization patient was treated for Ground level fall Right medial malleolus fracture possible possible Right proximal femur- greater trochanter fracture Pelvis and hip x-ray FINDINGS/IMPRESSION: 1. Distracted fracture of the right proximal femoral greater trochanter, timing unknown. This fracture may be acute or chronic. Evaluation of fine detail is severely limited by the patient's large body habitus. 2. No other fractures are identified about the pelvis or left hip. 3. Mild Osteoarthritis of the left hip. 4. The iliac crests are not fully imaged here. 5. Surgical clip in the right mid pelvis. Right lower leg x-ray impression FINDINGS/IMPRESSION: 1. Possible mildly displaced fracture of the medial malleolus, only seen in the periphery of the AP view. Recommend formal radiographs of the right ankle for better characterization. 2. No other evidence of fracture about the right tibia or fibula. 3. [id number] osteoarthritis of the right knee, greatest in the medial compartment. 4. Abundant subcutaneous adipose tissue consistent with obesit Consulted Dr. Rain by ER physician, Dr. Lazar(via text). We will appreciate the recommendations of Dr. Rain treated with pain medications of morphine and [place] p.r.n. patient was evaluated by Dr. Rain today who recommended CT scan of right hip t o evaluate for potential femoral neck and/or intertrochanteric hip fracture . He recommended Knee immobilizer for a right knee to help with physical therapy if the CT scan is negative for femoral neck or intertrochanteric hip fracture. 08/21/24-Patient was seen in her room she feels her pain over the right lower extremity and hip is better than yesterday. I did discuss patient's lumbar spine MRI yesterday with neurosurgeon Dr. Ward Funes on phone and he reviewed patient's diagnostic films and recommended to order CT spine lumbar area and pelvic CT. He also advised to add steroids and muscle relaxant and to continue pain management . He is willing to follow with the patient in outpatient setting in his office. He is okay for rehab discharge at this point of time. I reviewed results of pelvic CT and lumbar CT signs of acute fracture noted. Dr. Rain already following the patient. Likely discharge to rehab if clinically stable. Type 2 diabetes mellitus 9.6 hemoglobin A1c and blood glucose is 286 on patient is on home medications of 1000 mg p.o. b.i.d. of metformin On Humalog low-dose insulin protocol Continue to monitor blood glucose with a target of 140-180 Hypertension Blood pressure in 130s On home medication losartan 100 mg AFib On Eliquis 5 mg p.o. b.i.d., diltiazem 240 mg We will continue after medication reconciliation Hyperlipidemia Ordered lipid panel. We will continue atorvastatin 20 mg p.o. q.h.s. Hypothyroidism Other TSH We will continue levothyroxine 175 mcg after medication reconciliation Patient's clinical condition is stable throughout the hospitalization and she is discharged to rehab today. Medication reconciliation done for rehab discharge all questions and concerns answered to the best of my professional knowledge and discharge instructions wrote on discharge documents. General-patient not in any acute distress, alert awake oriented, obese age- appropriate HEENT-atraumatic normocephalic, neck supple without elevated JVD, no thyromegaly or carotid bruit. No lymphadenopathy bilaterally. Eyes-no icterus or pallor seen in eyes Chest-clear to auscultation bilaterally, breathing nonlabored no tachypnea, no wheezing, no crepitation, no crackles. Heart-S1-S2 normal, regular heart rate no murmur Abdomen bowel sounds positive on auscultation, soft nondistended nontender no guarding, no rigidity Skin no active skin rash, no ecchymosis Neurology-grossly intact, nonfocal alert awake oriented Extremity- no pedal edema bilaterally Psychiatry - patient is not confused or agitated cooperated during physical examination *Problems/Diagnosis: (1) Spinal stenosis of lumbar region with radiculopathy Total Time Spent on D/C: > 30 Minutes Date of Service: Aug 22, 2024 Billing Provider: RODRIGO REMY MD Common Visit Codes: 60767-OAE/OBS DISCH DAY >30min RODRIGO REMY MD Aug 22, 2024 17:22
== END 2024-08-22 15:45 | DRG 551 ==
LOC: ER 02:57 → UNDOADMIN 04:34 → ED HOLD 04:34 → EDBEDREQ 06:24 → ORTHO 4S 07:25 → ED HOLD 07:25
PROVIDERS: ADMIT Internal Medicine Pulmonary Disease; ATTEND Internal Medicine
DX: M48.061 Spinal stenosis, lumbar region without neurogenic claudication (principal); E11.00 Type 2 diabetes mellitus with hyperosmolarity without nonketotic hyperglycemic-hyperosmolar coma (NKHHC); S72.111A Displaced fracture of greater trochanter of right femur, initial encounter for closed fracture; S82.51XA Displaced fracture of medial malleolus of right tibia, initial encounter for closed fracture; M54.16 Radiculopathy, lumbar region; E03.9 Hypothyroidism, unspecified; E78.00 Pure hypercholesterolemia, unspecified; I10 Essential (primary) hypertension; I48.91 Unspecified atrial fibrillation; M16.12 Unilateral primary osteoarthritis, left hip; M17.11 Unilateral primary osteoarthritis, right knee; W18.2XXA Fall in (into) shower or empty bathtub, initial encounter; Y93.E1 Activity, personal bathing and showering; Z79.01 Long term (current) use of anticoagulants; Z82.49 Family history of ischemic heart disease and other diseases of the circulatory system; Z90.49 Acquired absence of other specified parts of digestive tract; Y93.89 Activity, other specified; Y92.090 Kitchen in other non-institutional residence as the place of occurrence of the external cause; Y99.8 Other external cause status
CPT/HCPCS: 36415; 70450; 71045; 72131; 72148; 72192; 73502; 73590; 73630; 73700; 80048; 80053; 80061; 81001; 82948; 83036; 83735; 84132; 84443; 85025; 85610; 85730; 86870; 86885; 86900; 86901; 86902; 86905; 87081; 97110; 97116; 97162; 97530; 99285; A6250; A6258; G0378; J1644; J1815; J2919; J7030